=== PATIENT | female | born 1960 | race Caucasian/White ===

== ENCOUNTER 2020-05-04 10:37 | Outpatient (CLI) | payer MEDICARE, SELFPAY ==
[2020-05-04 10:59] LABS: Basophils Absolute Auto 0.08 K/mm3 (0.00-0.10); Basophils Percent Auto 0.8 % (0.0-1.0); Eosinophils Absolute Auto 0.21 K/mm3 (0.02-0.50); Eosinophils Percent Auto 2.2 % (1.0-6.0); Hematocrit 39.4 % (35.0-49.0); Immature Granulocyte Absolute 0.07 K/mm3 (0.00-0.00); Immature Granulocyte Percent A 0.7 % (0.0-0.0); Lymphocytes Absolute Auto 2.95 K/mm3 (1.10-4.50); Lymphocytes Percent Auto 30.6 % (18.0-42.0); Mean Corpuscular HGB Conc 30.5 g/dL (32.0-36.0); Mean Corpuscular Hemoglobin 27.6 pg (27.0-31.0); Mean Corpuscular Volume 90.8 fL (78.0-102.0); Monocytes Absolute Auto 0.64 K/mm3 (0.10-0.90); Monocytes Percent Auto 6.6 % (2.0-11.0); Neutrophils Absolute Auto 5.7 K/mm3 (1.7-7.2); Neutrophils Percent Auto 59.1 % (50.0-70.0); Platelet Count Result 344 K/mm3 (150-420); Red Blood Count 4.34 M/mm3 (4.20-5.40); Red Cell Distribution Width 15.6 % (11.6-14.4); White Blood Count 9.6 K/mm3 (4.8-10.8)
[2020-05-04 11:09] LABS: Add Urine Microscopic? YES; Appearance Urine Cloudy (Clear); Bilirubin Urine Negative (Negative); Blood Urine Negative (Negative); Color Urine Yellow (Yellow); Glucose Urine UA Negative (Negative); Ketones Urine Negative (Negative); Leukocyte Esterase Ur Negative (Negative); Nitrate Urine Negative (Negative); Protein Urine 1+ (Negative); Specific Grav Ur >= 1.030 (1.010-1.020); Urobilinogen Urine 0.2 mg/dL (0.2-1.0)
[2020-05-04 11:10] LABS: Hemoglobin A1C 7.2 % (<5.7)
[2020-05-04 11:23] LABS: Bacteria Urine 2+ /hpf; RBC Urine 0-2 /hpf (0-2); Squamous Epithelial Cell Urine Moderate /hpf (Few); WBC Urine 0-3 /hpf (0-3)
[2020-05-04 11:25] LABS: Creatinine Urine 98.56 mg/dL (40-278)
[2020-05-04 11:26] LABS: MALB Creatinine Ratio 390.4 mg/g (0-30); Microalbumin Urine Random 384.8 mg/L
[2020-05-04 11:41] LABS: Alanine Aminotransferase 34 U/L (14-59); Albumin Level 3.6 g/dL (3.4-5.0); Alkaline Phosphatase 142 U/L (46-116); Anion Gap 15.7 mmol/L (7-16); Aspartate Amino Transferase 21 U/L (15-37); Bilirubin,Total 0.3 mg/dL (0.00-1.00); Blood Urea Nitrogen 17 mg/dL (7-18); Calcium 9.2 mg/dL (8.5-10.1); Carbon Dioxide 27 mmol/L (21-32); Chloride 102 mmol/L (98-108); Cholesterol 131 mg/dL (0-200); Estimated Glomerular Filt Rate > 60; Glucose 170 mg/dL (70-99); HDL Direct 37 mg/dL (40-60); LDL Cholesterol Calculated 70 mg/dL (<130); Osmolality Calculated 295 mOsm/kg (285-295); Potassium 4.7 mmol/L (3.5-5.1); Sodium 140 mmol/L (136-145); Thyroid Stimulating Hormone 1.85 uIU/mL (0.36-3.74); Total Protein 7.2 g/dL (6.4-8.2); Triglycerides 121 mg/dL (0-150)
== END 2020-05-04 10:38 | disposition home or self-care (01) ==
LOC: CHSLAB 10:43
PROVIDERS: PCP Internal Medicine; Visit Provider Internal Medicine
DX: E78.5 Hyperlipidemia, unspecified (principal); E11.9 Type 2 diabetes mellitus without complications; I10 Essential (primary) hypertension; Z00.00 Encounter for general adult medical examination without abnormal findings
CPT/HCPCS: 36415; 80053; 80061; 81001; 82043; 83036; 84443; 85025

== ENCOUNTER 2020-11-26 08:49 | Outpatient (RCR) | payer MEDICARE, SELFPAY ==
[2020-09-10 13:42] LABS: INR 3.8; Prothrombin Time 37.6 Seconds (9.64-11.0)
[2020-09-25 11:19] LABS: INR 3.6
[2020-10-12 13:30] LABS: Prothrombin Time 85.6 Seconds (9.50-12.10)
[2020-10-12 13:35] LABS: INR 8.7
[2020-10-19 14:07] LABS: INR 1.9
[2020-10-26 11:31] LABS: INR 2.1; Prothrombin Time 21.8 Seconds (9.50-12.10)
[2020-11-26 09:22] LABS: INR 3.2; Prothrombin Time 32.9 Seconds (9.50-12.10)
== END 2020-12-09 23:59 | disposition home or self-care (01) ==
LOC: CHSLAB 08:49
PROVIDERS: PCP Internal Medicine; Visit Provider Internal Medicine
DX: Z79.01 Long term (current) use of anticoagulants (principal)
CPT/HCPCS: 36415; 85610

== ENCOUNTER 2021-01-07 10:29 | Outpatient (CLI) | payer MEDICARE, SELFPAY ==
[2021-01-07 10:38] LABS: Basophils Absolute Auto 0.07 K/mm3 (0.00-0.10); Basophils Percent Auto 0.7 % (0.0-1.0); Eosinophils Percent Auto 1.9 % (1.0-6.0); Hematocrit 37.4 % (35.0-49.0); Hemoglobin 11.4 g/dL (12.0-15.0); Immature Granulocyte Absolute 0.07 K/mm3 (0.00-0.00); Immature Granulocyte Percent A 0.7 % (0.0-0.0); Lymphocytes Absolute Auto 2.69 K/mm3 (1.10-4.50); Lymphocytes Percent Auto 25.5 % (18.0-42.0); Mean Corpuscular HGB Conc 30.5 g/dL (32.0-36.0); Mean Corpuscular Hemoglobin 26.8 pg (27.0-31.0); Mean Corpuscular Volume 87.8 fL (78.0-102.0); Mean Platelet Volume 10.3 fl (9.2-11.8); Monocytes Absolute Auto 0.79 K/mm3 (0.10-0.90); Monocytes Percent Auto 7.5 % (2.0-11.0); Neutrophils Absolute Auto 6.7 K/mm3 (1.7-7.2); Neutrophils Percent Auto 63.7 % (50.0-70.0); Platelet Count Result 342 K/mm3 (150-420); Red Blood Count 4.26 M/mm3 (4.20-5.40); White Blood Count 10.6 K/mm3 (4.8-10.8)
[2021-01-07 10:46] LABS: Hemoglobin A1C 6.5 % (<5.7)
[2021-01-07 10:52] LABS: INR 1.8; Prothrombin Time 18.2 Seconds (9.50-12.10)
[2021-01-07 11:32] LABS: Alanine Aminotransferase 37 U/L (14-59); Albumin Level 3.5 g/dL (3.4-5.0); Alkaline Phosphatase 152 U/L (46-116); Anion Gap 10 mmol/L (8-16); Aspartate Amino Transferase 21 U/L (15-37); Bilirubin,Total 0.4 mg/dL (0.00-1.00); Blood Urea Nitrogen 17 mg/dL (7-18); Calcium 8.7 mg/dL (8.5-10.1); Carbon Dioxide 28 mmol/L (21-32); Chloride 103 mmol/L (98-108); Cholesterol 119 mg/dL (0-200); Estimated Glomerular Filt Rate > 60; Glucose 168 mg/dL (70-99); HDL Direct 34 mg/dL (40-60); LDL Cholesterol Calculated 67 mg/dL (<130); Osmolality Calculated 297 mOsm/kg (285-295); Potassium 4.4 mmol/L (3.5-5.1); Sodium 141 mmol/L (136-145); Thyroid Stimulating Hormone 1.77 uIU/mL (0.36-3.74); Total Protein 6.9 g/dL (6.4-8.2); Triglycerides 88 mg/dL (0-150)
== END 2021-01-07 10:30 | disposition home or self-care (01) ==
LOC: CHSLAB 10:30
PROVIDERS: PCP Internal Medicine; Visit Provider Internal Medicine
DX: E11.9 Type 2 diabetes mellitus without complications (principal); I10 Essential (primary) hypertension; E66.01 Morbid (severe) obesity due to excess calories; I49.9 Cardiac arrhythmia, unspecified; Z79.01 Long term (current) use of anticoagulants
CPT/HCPCS: 36415; 80053; 80061; 83036; 84443; 85025; 85610

== ENCOUNTER 2021-03-11 11:57 | Outpatient (RCR) | payer MEDICARE, SELFPAY ==
[2020-12-21 12:20] LABS: INR 1.6; Prothrombin Time 16.3 Seconds (9.50-12.10)
[2021-02-05 11:26] LABS: INR 1.8; Prothrombin Time 18.6 Seconds (9.50-12.10)
[2021-03-11 12:28] LABS: INR 1.5; Prothrombin Time 15.6 Seconds (9.50-12.10)
== END 2021-03-21 23:59 | disposition home or self-care (01) ==
LOC: CHSLAB 11:57
PROVIDERS: PCP Internal Medicine; Visit Provider Internal Medicine
DX: Z79.01 Long term (current) use of anticoagulants (principal)
CPT/HCPCS: 36415; 85610

== ENCOUNTER 2021-05-27 12:14 | Outpatient (RCR) | payer MEDICARE, SELFPAY ==
[2021-03-26 12:12] LABS: INR 2.5; Prothrombin Time 25.9 Seconds (9.50-12.10)
[2021-05-10 10:28] LABS: INR 1.8; Prothrombin Time 18.2 Seconds (9.50-12.10)
[2021-05-27 13:04] LABS: INR 1.9; Prothrombin Time 19.2 Seconds (9.50-12.10)
== END 2021-06-24 23:59 | disposition home or self-care (01) ==
LOC: CHSLAB 12:14
PROVIDERS: PCP Internal Medicine; Visit Provider Internal Medicine
DX: Z79.01 Long term (current) use of anticoagulants (principal)
CPT/HCPCS: 36415; 85610

== ENCOUNTER 2021-08-02 08:36 | Outpatient (CLI) | payer MEDICARE, SELFPAY ==
[2021-08-02 08:48] LABS: Basophils Absolute Auto 0.07 K/mm3 (0.00-0.10); Basophils Percent Auto 0.7 % (0.0-1.0); Eosinophils Absolute Auto 0.18 K/mm3 (0.02-0.50); Eosinophils Percent Auto 1.8 % (1.0-6.0); Hematocrit 35.7 % (35.0-49.0); Hemoglobin 10.8 g/dL (12.0-15.0); Immature Granulocyte Absolute 0.05 K/mm3 (0.00-0.00); Immature Granulocyte Percent A 0.5 % (0.0-0.0); Lymphocytes Absolute Auto 2.49 K/mm3 (1.10-4.50); Lymphocytes Percent Auto 25.6 % (18.0-42.0); Mean Corpuscular HGB Conc 30.3 g/dL (32.0-36.0); Mean Corpuscular Hemoglobin 26.3 pg (27.0-31.0); Mean Corpuscular Volume 86.9 fL (78.0-102.0); Mean Platelet Volume 9.7 fl (9.2-11.8); Monocytes Absolute Auto 0.68 K/mm3 (0.10-0.90); Neutrophils Absolute Auto 6.3 K/mm3 (1.7-7.2); Neutrophils Percent Auto 64.4 % (50.0-70.0); Platelet Count Result 342 K/mm3 (150-420); Red Blood Count 4.11 M/mm3 (4.20-5.40); White Blood Count 9.7 K/mm3 (4.8-10.8)
[2021-08-02 09:00] LABS: Hemoglobin A1C 8.1 % (<5.7)
[2021-08-02 09:03] LABS: INR 3.3; Prothrombin Time 33.4 Seconds (9.50-12.10)
[2021-08-02 10:00] LABS: Alanine Aminotransferase 37 U/L (14-59); Albumin Level 3.4 g/dL (3.4-5.0); Alkaline Phosphatase 145 U/L (46-116); Anion Gap 8 mmol/L (8-16); Aspartate Amino Transferase 17 U/L (15-37); Bilirubin,Total 0.3 mg/dL (0.00-1.00); Blood Urea Nitrogen 14 mg/dL (7-18); Calcium 8.6 mg/dL (8.5-10.1); Carbon Dioxide 29 mmol/L (21-32); Chloride 105 mmol/L (98-108); Estimated Glomerular Filt Rate > 60; Glucose 176 mg/dL (70-99); Osmolality Calculated 298 mOsm/kg (285-295); Potassium 4.7 mmol/L (3.5-5.1); Sodium 142 mmol/L (136-145); Total Protein 6.6 g/dL (6.4-8.2)
== END 2021-08-02 08:37 | disposition home or self-care (01) ==
LOC: CHSLAB 08:39
PROVIDERS: PCP Internal Medicine; Visit Provider Internal Medicine
DX: Z79.01 Long term (current) use of anticoagulants (principal); I10 Essential (primary) hypertension; E11.9 Type 2 diabetes mellitus without complications
CPT/HCPCS: 36415; 80053; 83036; 85025; 85610

== ENCOUNTER 2021-08-28 03:20 | Day surgery (SDC) | payer MEDICARE, SELFPAY ==
[2021-08-20 10:17] VITALS: BMI 57.3
--- NOTE | 2021-08-27 10:29 | P.PNAN_ITS ---
Anes - Initial Pre Proc Eval Procedure: Operation Date: 08/28/21 12:30 Proposed Procedures p Colonoscopy - Arnoldo Nelson MD Date/Time: 08/27/21 10:29 Surgeon: Arnoldo Nelson MD Pre Op Diagnosis: anemia Patient Data Age: 61 Gender: F Height: 1.7 m Weight: 166 kg Allergies Allergy/AdvReac Type Severity Reaction Status Date / Time No Known Allergies Allergy Verified 08/28/21 11:53 Home Medications Medication Instructions Recorded Confirmed Type carvedilol 12.5 mg PO BID 08/20/21 08/20/21 History cetirizine 10 mg PO DAILY 08/20/21 08/20/21 History duloxetine 20 mg PO BID 08/20/21 08/20/21 History famotidine 20 mg PO DAILY 08/20/21 08/20/21 History losartan-hydrochlorothiazide 1 tablet PO DAILY 08/20/21 08/20/21 History metformin 1,500 mg PO DAILY 08/20/21 08/20/21 History semaglutide [Ozempic] 0.25 mg SUBCUT WEEKLY 08/20/21 08/20/21 History sertraline 150 mg PO DAILY 08/20/21 08/20/21 History spironolactone 25 mg PO DAILY 08/20/21 08/20/21 History warfarin 3.5 mg PO DAILY 08/20/21 08/20/21 History Patient hx anesthesia problems: none Family hx anesthesia problems: none Results Review: All pre-operative results and documents have been reviewed as part of the pre-operative evaluation. [facility] Past Medical History Medical History (Updated 08/27/21 @ 10:30 by Maurice Xavier DO) Asthma Atrial fibrillation Diabetes type 2, controlled GERD (gastroesophageal reflux disease) History of ulcer disease Hypertension ERIKA (obstructive sleep apnea) Surgical History Surgical History (Updated 08/27/21 @ 10:30 by Maurice Xavier DO) History of gastric bypass Social History Social History Smoking status: Never smoker Living arrangements: alone Spiritual care concerns: No Anes - Eval Final PreProcedure Day of Procedure 08/27/21 10:29 Patient weight: super morbidly obese Heart: regular rate and rhythm Lungs: clear to auscultation and normal air movement Airway: Mallampati scale class III Neurological: alert and oriented Last oral intake: >/= 8 hours ASA classification: III Emergent: no Anesthetic plan: proceed Anesthesia type and monitoring: general GIVS and standard monitoring Results Review: All pre-operative results and documents have been reviewed as part of the pre-operative evaluation. Informed Consent: The patient's anesthetic plan and its attendant risks and benefits were discussed with the patient/family/POA. Questions were solicited and answers provided to the satisfaction of the patient/family/POA.
[2021-08-28 12:00] VITALS: BP 160/95; PULSE 99; RESP 26; TEMP 36.2; O2SAT 98
[2021-08-28] MEDS: LACTATED RINGERS 1,000 ML 150 ML IV CONT (12:02)
[2021-08-28 12:09] LABS: Glucose Point of Care 157 mg/dl (65-105)
--- NOTE | 2021-08-28 12:21 | PM.HPGS ---
History of Present Illness History of Present Illness Consent: Risks, benefits, and alternatives have been discussed and questions answered. Patient agrees to proceed with procedure. Chief complaint: anemia Narrative: Adelita Hammonds is a 61 year old female with max, using coumadin but denies overt gib, last colonoscopy about 20 years ago. Review of Systems Constitutional: Constitutional: Denies headache(s) and Denies weakness Eyes: Eyes: Denies blurry vision ENT: Reports Normal hearing present, Denies headache(s) and Denies neck pain Cardiovascular: Cardiovascular: Denies chest pain and Denies dyspnea Respiratory: Respiratory: Denies dyspnea Gastrointestinal: Gastrointestinal: Reports no additional gastrointestinal complaints Genitourinary: Genitourinary: Denies dysuria Musculoskeletal: Musculoskeletal: Denies neck pain Integumentary/Breasts: Skin/Breast: Denies dry skin Neurologic: Reports Normal hearing present, Denies headache(s) and Denies weakness Psychiatric: Psychiatric: Denies anxiety Endocrine: Endocrine: Denies change in body appearance Hematologic/Lymphatic: Hematologic/Lymphatic: Denies easy bleeding Allergic/Immunologic: Allergic/Immunologic: Denies urticaria PMFSH Past Medical History Medical History (Updated 08/28/21 @ 12:22 by Arnoldo Nelson MD) Asthma Atrial fibrillation Diabetes type 2, controlled GERD (gastroesophageal reflux disease) History of ulcer disease Hypertension Iron deficiency anemia ERIKA (obstructive sleep apnea) Surgical History Surgical History (Updated 08/27/21 @ 10:30 by Maurice Xavier DO) History of gastric bypass Social History Social History Smoking status: Never smoker Living arrangements: alone Spiritual care concerns: No Meds Home Medications and Allergies Home Medications Medication Instructions Recorded Confirmed Type carvedilol 12.5 mg PO BID 08/20/21 08/20/21 History cetirizine 10 mg PO DAILY 08/20/21 08/20/21 History duloxetine 20 mg PO BID 08/20/21 08/20/21 History famotidine 20 mg PO DAILY 08/20/21 08/20/21 History losartan-hydrochlorothiazide 1 tablet PO DAILY 08/20/21 08/20/21 History metformin 1,500 mg PO DAILY 08/20/21 08/20/21 History semaglutide [Ozempic] 0.25 mg SUBCUT WEEKLY 08/20/21 08/20/21 History sertraline 150 mg PO DAILY 08/20/21 08/20/21 History spironolactone 25 mg PO DAILY 08/20/21 08/20/21 History warfarin 3.5 mg PO DAILY 08/20/21 08/20/21 History Allergies Allergy/AdvReac Type Severity Reaction Status Date / Time No Known Allergies Allergy Verified 08/28/21 11:53 Vital Signs Vital Signs - 24 hr 08/28/21 12:00 Temperature 97.2 F L Pulse Rate 99 Respiratory Rate 26 H Blood Pressure 160/95 H Pulse Oximetry 98 Exam Const: General: comfortable and no acute distress Nutritional Appearance: obese HENMT: General nose exam: Normal nares present Eyes: General: appearance normal, both eyes and all related structures Neck: Neck: no JVD Resp: Auscultation: clear to auscultation bilaterally Cardio: Rate: regular rate Rhythm: regular rhythm GI: Inspection: non-distended GI Palp: Yes Soft to palpation Skin: General skin exam: normal color Neuro: General: gait normal Speech: normal speech Extrem: General: normal to inspection Psych: Mental Status: mental status grossly normal Assessment and Plan Assessment and plan (1) Iron deficiency anemia: Code(s): D50.9 - Iron deficiency anemia, unspecified Status: Acute Assessment and Plan: colonoscopy to assess if gi blood loss (2) Atrial fibrillation: Code(s): I48.91 - Unspecified atrial fibrillation Status: Inactive Assessment and Plan: coumadin on hold on preparation for colonoscopy
[2021-08-28 13:21] VITALS: BP 138/75; PULSE 62; RESP 14; O2SAT 98
[2021-08-28 13:31] VITALS: BP 118/74; PULSE 66; RESP 19; O2SAT 99
[2021-08-28 13:41] VITALS: BP 143/84; PULSE 64; RESP 22; O2SAT 100
== END 2021-08-28 14:01 | disposition home or self-care (01) ==
PROVIDERS: PCP Internal Medicine; Visit Provider Internal Medicine Gastroenterology
PROC: 0DJD8ZZ Inspection of Lower Intestinal Tract, Via Natural or Artificial Opening Endoscopic (ICD-10-PCS; CPT 45378; principal; 2021-08-28 12:30)
DX: Z12.11 Encounter for screening for malignant neoplasm of colon (principal); D50.9 Iron deficiency anemia, unspecified; K64.8 Other hemorrhoids; I48.91 Unspecified atrial fibrillation; J45.909 Unspecified asthma, uncomplicated; I10 Essential (primary) hypertension; K21.9 Gastro-esophageal reflux disease without esophagitis; G47.33 Obstructive sleep apnea (adult) (pediatric); Z87.11 Personal history of peptic ulcer disease; Z79.01 Long term (current) use of anticoagulants; Z79.899 Other long term (current) drug therapy; Z98.84 Bariatric surgery status; E66.01 Morbid (severe) obesity due to excess calories; Z68.43 Body mass index [BMI] 50.0-59.9, adult
CPT/HCPCS: G0121; 82948; J2704; J7120

== ENCOUNTER 2021-10-08 10:14 | Outpatient (RCR) | payer MEDICARE, SELFPAY ==
[2021-09-26 09:22] LABS: INR 1.9; Prothrombin Time 19.3 Seconds (9.50-12.10)
[2021-10-08 10:40] LABS: INR 2.1; Prothrombin Time 21.9 Seconds (9.50-12.10)
== END 2021-10-08 23:59 | disposition home or self-care (01) ==
LOC: CHSLAB 10:14
PROVIDERS: PCP Internal Medicine; Visit Provider Internal Medicine
DX: Z79.01 Long term (current) use of anticoagulants (principal)
CPT/HCPCS: 36415; 85610

== ENCOUNTER 2022-01-10 10:35 | Outpatient (CLI) | payer MEDICARE, SELFPAY ==
[2022-01-10 10:51] LABS: Basophils Absolute Auto 0.08 K/mm3 (0.00-0.10); Basophils Percent Auto 0.8 % (0.0-1.0); Eosinophils Absolute Auto 0.16 K/mm3 (0.02-0.50); Eosinophils Percent Auto 1.7 % (1.0-6.0); Hematocrit 36.6 % (35.0-49.0); Immature Granulocyte Absolute 0.04 K/mm3 (0.00-0.00); Immature Granulocyte Percent A 0.4 % (0.0-0.0); Lymphocytes Absolute Auto 2.43 K/mm3 (1.10-4.50); Lymphocytes Percent Auto 25.7 % (18.0-42.0); Mean Corpuscular HGB Conc 30.1 g/dL (32.0-36.0); Mean Corpuscular Hemoglobin 25.8 pg (27.0-31.0); Mean Corpuscular Volume 85.7 fL (78.0-102.0); Mean Platelet Volume 10.4 fl (9.2-11.8); Monocytes Absolute Auto 0.69 K/mm3 (0.10-0.90); Monocytes Percent Auto 7.3 % (2.0-11.0); Neutrophils Absolute Auto 6.1 K/mm3 (1.7-7.2); Neutrophils Percent Auto 64.1 % (50.0-70.0); Platelet Count Result 379 K/mm3 (150-420); Red Blood Count 4.27 M/mm3 (4.20-5.40); Red Cell Distribution Width 17.3 % (11.6-14.4); White Blood Count 9.5 K/mm3 (4.8-10.8)
[2022-01-10 11:02] LABS: Hemoglobin A1C 7.2 % (<5.7)
[2022-01-10 11:04] LABS: INR 1.6; Prothrombin Time 16.8 Seconds (9.50-12.10)
[2022-01-10 11:58] LABS: Alanine Aminotransferase 31 U/L (14-59); Albumin Level 3.4 g/dL (3.4-5.0); Alkaline Phosphatase 157 U/L (46-116); Anion Gap 11 mmol/L (8-16); Aspartate Amino Transferase 15 U/L (15-37); Bilirubin,Total 0.4 mg/dL (0.00-1.00); Blood Urea Nitrogen 12 mg/dL (7-18); Calcium 8.9 mg/dL (8.5-10.1); Carbon Dioxide 27 mmol/L (21-32); Chloride 104 mmol/L (98-108); Cholesterol 116 mg/dL (0-200); Estimated Glomerular Filt Rate > 60; Glucose 175 mg/dL (70-99); HDL Direct 44 mg/dL (40-60); LDL Cholesterol Calculated 55 mg/dL (<130); Osmolality Calculated 297 mOsm/kg (285-295); Potassium 4.4 mmol/L (3.5-5.1); Sodium 142 mmol/L (136-145); Thyroid Stimulating Hormone 1.34 uIU/mL (0.36-3.74); Total Protein 6.9 g/dL (6.4-8.2); Triglycerides 84 mg/dL (0-150)
[2022-01-10 12:23] LABS: Creatinine Urine 156.98 mg/dL (40-278); MALB Creatinine Ratio 254.8 mg/g (0-30); Microalbumin Urine Random > 400.0 mg/L
== END 2022-01-10 10:36 | disposition home or self-care (01) ==
LOC: CHSLAB 10:37
PROVIDERS: PCP Internal Medicine; Visit Provider Internal Medicine
DX: Z79.01 Long term (current) use of anticoagulants (principal); I10 Essential (primary) hypertension; E11.9 Type 2 diabetes mellitus without complications; E78.5 Hyperlipidemia, unspecified
CPT/HCPCS: 36415; 80053; 80061; 82043; 83036; 84443; 85025; 85610

== ENCOUNTER 2022-02-04 11:22 | Outpatient (CLI) | payer MEDICARE, SELFPAY ==
--- NOTE | ~2022-02-04 | MM_ITS ---
EXAMINATION: MM screening [facility] BI w shari HISTORY: Screening mammogram TECHNIQUE: Craniocaudal and mediolateral oblique 3-D tomosynthesis images were obtained and synthetic 2-D images were generated. CAD analysis was submitted and interpreted. COMPARISON: 12/29/2017, 09/11/2016 BREAST PARENCHYMAL COMPOSITION: There are scattered areas of fibroglandular density. FINDINGS: There is no suspicious mass, calcification, or architectural distortion to suggest malignan cy in either breast. There has been no suspicious interval change. IMPRESSION: 1. No mammographic evidence of malignancy. 2. Recommend routine screening mammography in one year. BI-RADS Category 1: Negative Reviewed, dictated and finalized at location A.
[2022-02-04 11:54] LABS: INR 4.3; Prothrombin Time 43.3 Seconds (9.50-12.10)
== END 2022-02-04 11:23 | disposition home or self-care (01) ==
LOC: CHSIMG 11:24
PROVIDERS: PCP Internal Medicine; Visit Provider Internal Medicine
DX: Z79.01 Long term (current) use of anticoagulants (principal); Z12.31 Encounter for screening mammogram for malignant neoplasm of breast
CPT/HCPCS: 36415; 77063; 77067; 85610

== ENCOUNTER 2022-02-18 11:05 | Outpatient (RCR) | payer MEDICARE, SELFPAY ==
[2021-11-22 11:44] LABS: INR 1.7; Prothrombin Time 17.7 Seconds (9.50-12.10)
[2021-12-09 10:55] LABS: INR 2.6; Prothrombin Time 26.7 Seconds (9.50-12.10)
[2022-02-18 11:25] LABS: INR 2.2; Prothrombin Time 22.4 Seconds (9.50-12.10)
== END 2022-02-20 23:59 | disposition home or self-care (01) ==
LOC: CHSLAB 11:05
PROVIDERS: PCP Internal Medicine; Visit Provider Internal Medicine
DX: Z79.01 Long term (current) use of anticoagulants (principal)
CPT/HCPCS: 36415; 85610

== ENCOUNTER 2022-04-08 13:54 | Outpatient (CLI) | payer MEDICARE, SELFPAY ==
[2022-04-08 14:46] LABS: SARS-CoV-2 RNA PCR Negative (Negative)
== END 2022-04-08 13:55 | disposition home or self-care (01) ==
PROVIDERS: PCP Internal Medicine; Visit Provider Nurse Practitioner Family
DX: J06.9 Acute upper respiratory infection, unspecified (principal); Z20.822 Contact with and (suspected) exposure to COVID-19
CPT/HCPCS: C9803; U0003; U0005

== ENCOUNTER 2022-04-26 09:37 | Outpatient (CLI) | payer MEDICARE, SELFPAY ==
[2022-04-26 09:50] LABS: Basophils Absolute Auto 0.05 K/mm3 (0.00-0.10); Basophils Percent Auto 0.5 % (0.0-1.0); Eosinophils Absolute Auto 0.17 K/mm3 (0.02-0.50); Eosinophils Percent Auto 1.7 % (1.0-6.0); Hematocrit 39.4 % (35.0-49.0); Hemoglobin 12.2 g/dL (12.0-15.0); Immature Granulocyte Absolute 0.04 K/mm3 (0.00-0.00); Immature Granulocyte Percent A 0.4 % (0.0-0.0); Lymphocytes Absolute Auto 2.67 K/mm3 (1.10-4.50); Lymphocytes Percent Auto 27.1 % (18.0-42.0); Mean Corpuscular Hemoglobin 26.6 pg (27.0-31.0); Mean Corpuscular Volume 85.8 fL (78.0-102.0); Mean Platelet Volume 10.1 fl (9.2-11.8); Monocytes Absolute Auto 0.71 K/mm3 (0.10-0.90); Monocytes Percent Auto 7.2 % (2.0-11.0); Neutrophils Absolute Auto 6.2 K/mm3 (1.7-7.2); Neutrophils Percent Auto 63.1 % (50.0-70.0); Platelet Count Result 364 K/mm3 (150-420); Red Blood Count 4.59 M/mm3 (4.20-5.40); Red Cell Distribution Width 16.1 % (11.6-14.4); White Blood Count 9.8 K/mm3 (4.8-10.8)
[2022-04-26 10:06] LABS: INR 1.9; Prothrombin Time 19.5 Seconds (9.50-12.10)
[2022-04-26 10:07] LABS: Hemoglobin A1C 6.3 % (<5.7)
[2022-04-26 10:09] LABS: Alanine Aminotransferase 27 U/L (14-59); Albumin Level 3.5 g/dL (3.4-5.0); Alkaline Phosphatase 132 U/L (46-116); Anion Gap 9 mmol/L (8-16); Aspartate Amino Transferase 17 U/L (15-37); Bilirubin,Total 0.3 mg/dL (0.00-1.00); Blood Urea Nitrogen 22 mg/dL (7-18); Calcium 9.4 mg/dL (8.5-10.1); Carbon Dioxide 26 mmol/L (21-32); Chloride 106 mmol/L (98-108); Estimated Glomerular Filt Rate > 60; Glucose 147 mg/dL (70-99); Osmolality Calculated 298 mOsm/kg (285-295); Potassium 4.2 mmol/L (3.5-5.1); Sodium 141 mmol/L (136-145); Total Protein 7.7 g/dL (6.4-8.2)
== END 2022-04-26 09:38 | disposition home or self-care (01) ==
LOC: CHSLAB 09:38
PROVIDERS: PCP Internal Medicine; Visit Provider Internal Medicine
DX: E11.9 Type 2 diabetes mellitus without complications (principal); I10 Essential (primary) hypertension; I48.19 Other persistent atrial fibrillation
CPT/HCPCS: 36415; 80053; 83036; 85025; 85610

== ENCOUNTER 2022-05-30 09:59 | Outpatient (RCR) | payer MEDICARE, SELFPAY ==
[2022-04-03 09:22] LABS: Prothrombin Time 55.7 Seconds (9.50-12.10)
[2022-04-03 09:28] LABS: INR 5.7
[2022-04-14 12:21] LABS: INR 1.2; Prothrombin Time 12.7 Seconds (9.50-12.10)
[2022-05-30 10:26] LABS: INR 1.8; Prothrombin Time 18.6 Seconds (9.50-12.10)
== END 2022-07-02 23:59 | disposition home or self-care (01) ==
LOC: CHSLAB 09:59
PROVIDERS: PCP Internal Medicine; Visit Provider Internal Medicine
DX: Z79.01 Long term (current) use of anticoagulants (principal)
CPT/HCPCS: 36415; 85610

== ENCOUNTER 2022-09-30 11:31 | Outpatient (RCR) | payer MEDICARE, SELFPAY ==
[2022-07-04 11:09] LABS: INR 1.5; Prothrombin Time 15.9 Seconds (9.50-12.10)
[2022-07-22 10:07] LABS: INR 2.5; Prothrombin Time 25.3 Seconds (9.50-12.10)
[2022-08-21 12:13] LABS: INR 2.7; Prothrombin Time 27.5 Seconds (9.50-12.10)
[2022-09-30 12:08] LABS: INR 1.8; Prothrombin Time 18.9 Seconds (9.50-12.10)
== END 2022-10-02 23:59 | disposition home or self-care (01) ==
LOC: CHSLAB 11:31
PROVIDERS: PCP Internal Medicine; Visit Provider Internal Medicine
DX: Z79.01 Long term (current) use of anticoagulants (principal)
CPT/HCPCS: 36415; 85610

== ENCOUNTER 2022-11-25 09:13 | Outpatient (CLI) | payer MEDICARE, SELFPAY ==
[2022-11-25 09:55] LABS: Basophils Absolute Auto 0.08 K/mm3 (0.00-0.10); Eosinophils Absolute Auto 0.16 K/mm3 (0.02-0.50); Hematocrit 40.7 % (35.0-49.0); Hemoglobin 12.6 g/dL (12.0-15.0); Immature Granulocyte Absolute 0.02 K/mm3 (0.00-0.00); Immature Granulocyte Percent A 0.3 % (0.0-0.0); Lymphocytes Absolute Auto 2.21 K/mm3 (1.10-4.50); Lymphocytes Percent Auto 27.6 % (18.0-42.0); Mean Corpuscular Hemoglobin 27.6 pg (27.0-31.0); Mean Corpuscular Volume 89.1 fL (78.0-102.0); Mean Platelet Volume 10.1 fl (9.2-11.8); Monocytes Absolute Auto 0.54 K/mm3 (0.10-0.90); Monocytes Percent Auto 6.8 % (2.0-11.0); Neutrophils Percent Auto 62.3 % (50.0-70.0); Platelet Count Result 331 K/mm3 (150-420); Red Blood Count 4.57 M/mm3 (4.20-5.40); Red Cell Distribution Width 16.5 % (11.6-14.4)
[2022-11-25 10:04] LABS: Hemoglobin A1C 6.2 % (<5.7)
[2022-11-25 10:35] LABS: Add Urine Microscopic? NO; Appearance Urine Clear (Clear); Bilirubin Urine Negative (Negative); Blood Urine Negative (Negative); Color Urine Yellow (Yellow); Glucose Urine UA Negative (Negative); Ketones Urine Negative (Negative); Leukocyte Esterase Ur Negative LEU/UL (Negative); Nitrate Urine Negative (Negative); Protein Urine Negative (Negative); Specific Grav Ur >= 1.030 (1.010-1.020); Urobilinogen Urine 0.2 mg/dL (0.2-1.0); pH Urine 5.5 (5.0-8.0)
[2022-11-25 10:38] LABS: Alanine Aminotransferase 29 U/L (14-59); Albumin Level 3.7 g/dL (3.4-5.0); Alkaline Phosphatase 152 U/L (46-116); Anion Gap 9 mmol/L (8-16); Aspartate Amino Transferase 22 U/L (15-37); Bilirubin,Total 0.3 mg/dL (0.00-1.00); Blood Urea Nitrogen 28 mg/dL (7-18); Calcium 9.2 mg/dL (8.5-10.1); Carbon Dioxide 27 mmol/L (21-32); Chloride 103 mmol/L (98-108); Cholesterol 175 mg/dL (0-200); Estimated Glomerular Filt Rate > 60; Glucose 132 mg/dL (70-99); HDL Direct 51 mg/dL (40-60); LDL Cholesterol Calculated 105 mg/dL (<130); Osmolality Calculated 295 mOsm/kg (285-295); Potassium 4.1 mmol/L (3.5-5.1); Sodium 139 mmol/L (136-145); Total Protein 7.4 g/dL (6.4-8.2); Triglycerides 95 mg/dL (0-150)
== END 2022-11-25 09:14 | disposition home or self-care (01) ==
PROVIDERS: PCP Internal Medicine; Visit Provider Internal Medicine
DX: E11.65 Type 2 diabetes mellitus with hyperglycemia (principal); E78.2 Mixed hyperlipidemia; N39.0 Urinary tract infection, site not specified
CPT/HCPCS: 36415; 80053; 80061; 81003; 83036; 85025

== ENCOUNTER 2023-02-04 10:07 | Outpatient (RCR) | payer MEDICARE, SELFPAY ==
[2022-11-11 09:52] LABS: INR 2.8; Prothrombin Time 28.7 Seconds (9.50-12.10)
[2022-12-16 09:31] LABS: INR 1.7; Prothrombin Time 18.1 Seconds (9.50-12.10)
[2022-12-30 09:59] LABS: INR 1.2; Prothrombin Time 13.2 Seconds (9.50-12.10)
[2023-01-13 09:49] LABS: INR 1.7; Prothrombin Time 18.2 Seconds (9.50-12.10)
[2023-01-20 09:44] LABS: INR 1.7; Prothrombin Time 18.2 Seconds (9.50-12.10)
[2023-01-27 09:48] LABS: INR 1.8; Prothrombin Time 18.9 Seconds (9.50-12.10)
[2023-02-04 10:26] LABS: INR 2.3; Prothrombin Time 23.8 Seconds (9.50-12.10)
== END 2023-02-09 23:59 | disposition home or self-care (01) ==
LOC: CHSLAB 10:07
PROVIDERS: PCP Internal Medicine; Visit Provider Internal Medicine
DX: Z51.81 Encounter for therapeutic drug level monitoring (principal); Z79.01 Long term (current) use of anticoagulants
CPT/HCPCS: 36415; 85610

== ENCOUNTER 2023-02-05 13:50 | Outpatient (CLI) | payer MEDICARE, SELFPAY ==
--- NOTE | ~2023-02-05 | MM_ITS ---
EXAMINATION: MM screening [facility] BI w shari HISTORY: Screening TECHNIQUE: Craniocaudal and mediolateral oblique 3-D tomosynthesis images were obtained and synthetic 2-D images were generated. CAD analysis was submitted and interpreted. COMPARISON: Comparison to multiple prior studies sequentially, with oldest reviewed study dated 03/2013. BREAST PARENCHYMAL COMPOSITION: There are scattered areas of fibroglandular density. FINDINGS: There is no evidence of suspicious mass, calcification, or architectural distortion to sugg est malignancy in either breast. There has been no suspicious interval change. IMPRESSION: 1. No mammographic evidence of malignancy. 2. Recommend routine screening mammography in one year. BI-RADS Category 1: Negative Reviewed, dictated and finalized at location A.
== END 2023-02-05 13:51 | disposition home or self-care (01) ==
LOC: CHSIMG 13:50
PROVIDERS: PCP Internal Medicine; Visit Provider Internal Medicine
DX: Z12.31 Encounter for screening mammogram for malignant neoplasm of breast (principal)
CPT/HCPCS: 77063; 77067

== ENCOUNTER 2023-03-10 09:09 | Outpatient (CLI) | payer MEDICARE, SELFPAY ==
[2023-03-10 09:34] LABS: INR 2.5; Prothrombin Time 25.9 Seconds (9.50-12.10)
[2023-03-10 09:56] LABS: Hemoglobin A1C 6.4 % (<5.7)
[2023-03-10 10:05] LABS: Alanine Aminotransferase 28 U/L (14-59); Albumin Level 3.4 g/dL (3.4-5.0); Alkaline Phosphatase 166 U/L (46-116); Anion Gap 9 mmol/L (8-16); Aspartate Amino Transferase 14 U/L (15-37); Bilirubin,Total 0.4 mg/dL (0.00-1.00); Blood Urea Nitrogen 12 mg/dL (7-18); Carbon Dioxide 28 mmol/L (21-32); Chloride 107 mmol/L (98-108); Cholesterol 116 mg/dL (0-200); Estimated Glomerular Filt Rate > 60; Glucose 127 mg/dL (70-99); HDL Direct 53 mg/dL (40-60); LDL Cholesterol Calculated 48 mg/dL (<130); Osmolality Calculated 299 mOsm/kg (285-295); Potassium 4.3 mmol/L (3.5-5.1); Sodium 144 mmol/L (136-145); Total Protein 6.7 g/dL (6.4-8.2); Triglycerides 75 mg/dL (0-150)
== END 2023-03-10 09:10 | disposition home or self-care (01) ==
LOC: CHSLAB 09:12
PROVIDERS: PCP Internal Medicine; Visit Provider Internal Medicine
DX: Z79.01 Long term (current) use of anticoagulants (principal); E11.9 Type 2 diabetes mellitus without complications; I10 Essential (primary) hypertension
CPT/HCPCS: 36415; 80053; 80061; 83036; 85610

== ENCOUNTER 2023-06-30 09:24 | Outpatient (RCR) | payer MEDICARE, SELFPAY ==
[2023-04-07 10:00] LABS: INR 2.6; Prothrombin Time 26.3 Seconds (9.50-12.10)
[2023-05-15 12:22] LABS: Prothrombin Time 52.3 Seconds (9.50-12.10)
[2023-05-15 12:28] LABS: INR 5.4
[2023-06-02 09:28] LABS: INR 3.9; Prothrombin Time 38.6 Seconds (9.50-12.10)
[2023-06-16 09:46] LABS: INR 4.2; Prothrombin Time 41.1 Seconds (9.50-12.10)
[2023-06-30 09:51] LABS: INR 1.7; Prothrombin Time 17.6 Seconds (9.50-12.10)
== END 2023-07-06 23:59 | disposition home or self-care (01) ==
LOC: CHSLAB 09:24
PROVIDERS: PCP Internal Medicine; Visit Provider Internal Medicine
DX: Z51.81 Encounter for therapeutic drug level monitoring (principal); Z79.01 Long term (current) use of anticoagulants
CPT/HCPCS: 36415; 85610

== ENCOUNTER 2023-08-06 08:39 | Outpatient (CLI) | payer MEDICARE, SELFPAY ==
[2023-08-06 08:54] LABS: Basophils Absolute Auto 0.05 K/mm3 (0.00-0.10); Basophils Percent Auto 0.6 % (0.0-1.0); Eosinophils Absolute Auto 0.21 K/mm3 (0.02-0.50); Eosinophils Percent Auto 2.4 % (1.0-6.0); Hematocrit 35.3 % (35.0-49.0); Hemoglobin 10.9 g/dL (12.0-15.0); Immature Granulocyte Absolute 0.03 K/mm3 (0.00-0.00); Immature Granulocyte Percent A 0.3 % (0.0-0.0); Lymphocytes Absolute Auto 2.56 K/mm3 (1.10-4.50); Mean Corpuscular HGB Conc 30.9 g/dL (32.0-36.0); Mean Corpuscular Hemoglobin 27.9 pg (27.0-31.0); Mean Corpuscular Volume 90.5 fL (78.0-102.0); Monocytes Absolute Auto 0.68 K/mm3 (0.10-0.90); Monocytes Percent Auto 7.7 % (2.0-11.0); Neutrophils Absolute Auto 5.3 K/mm3 (1.7-7.2); Platelet Count Result 342 K/mm3 (150-420); Red Cell Distribution Width 15.6 % (11.6-14.4); White Blood Count 8.8 K/mm3 (4.8-10.8)
[2023-08-06 09:03] LABS: Hemoglobin A1C 6.2 % (<5.7)
[2023-08-06 09:09] LABS: INR 1.9; Prothrombin Time 19.4 Seconds (9.50-12.10)
[2023-08-06 09:40] LABS: Alanine Aminotransferase 26 U/L (14-59); Albumin Level 3.4 g/dL (3.4-5.0); Alkaline Phosphatase 167 U/L (46-116); Anion Gap 12 mmol/L (8-16); Aspartate Amino Transferase 17 U/L (15-37); Bilirubin,Total 0.3 mg/dL (0.00-1.00); Blood Urea Nitrogen 18 mg/dL (7-18); Calcium 9.4 mg/dL (8.5-10.1); Carbon Dioxide 25 mmol/L (21-32); Chloride 106 mmol/L (98-108); Cholesterol 128 mg/dL (0-200); Estimated Glomerular Filt Rate > 60; Glucose 103 mg/dL (70-99); HDL Direct 45 mg/dL (40-60); LDL Cholesterol Calculated 64 mg/dL (<130); Osmolality Calculated 297 mOsm/kg (285-295); Potassium 4.6 mmol/L (3.5-5.1); Sodium 143 mmol/L (136-145); Thyroid Stimulating Hormone 2.08 uIU/mL (0.36-3.74); Total Protein 6.7 g/dL (6.4-8.2); Triglycerides 95 mg/dL (0-150)
== END 2023-08-06 08:40 | disposition home or self-care (01) ==
LOC: CHSLAB 08:41
PROVIDERS: PCP Internal Medicine; Visit Provider Internal Medicine
DX: E78.5 Hyperlipidemia, unspecified (principal); E11.65 Type 2 diabetes mellitus with hyperglycemia; I10 Essential (primary) hypertension; Z79.01 Long term (current) use of anticoagulants
CPT/HCPCS: 36415; 80053; 80061; 83036; 84443; 85025; 85610

== ENCOUNTER 2023-08-06 13:50 | Outpatient (CLI) | payer MEDICARE, SELFPAY ==
[2023-08-07 14:08] LABS: Immature Reticulocyte Fraction 28.3 % (2.0-16.52); Reticulocyte Hemoglobin Conten 26.8 pg (28.0-35.0); Reticulocyte Percent 2.79 % (0.50-1.50); Reticulocytes Absolute 0.11 M/mm3 (0.02-0.1)
[2023-08-07 14:45] LABS: Ferritin 9 ng/mL (8-252); Iron 33 ug/dL (50-170); Percent Iron Saturation 8 % (12-57)
[2023-08-10 11:48] LABS: Methylmalonic Acid 148 nmol/L (87-318)
[2023-08-11 21:14] LABS: Red Blood Cell Folate 862 ng/mL RBC (>280)
== END 2023-08-06 13:51 | disposition home or self-care (01) ==
LOC: CHSLAB 08-18 07:38
PROVIDERS: PCP Internal Medicine; Visit Provider Internal Medicine
DX: D64.9 Anemia, unspecified (principal)
CPT/HCPCS: 36415; 82728; 82747; 83540; 83550; 83921; 85046

== ENCOUNTER 2023-09-22 09:08 | Outpatient (CLI) | payer MEDICARE, SELFPAY ==
[2023-09-22 09:20] LABS: Basophils Absolute Auto 0.06 K/mm3 (0.00-0.10); Basophils Percent Auto 0.8 % (0.0-1.0); Eosinophils Absolute Auto 0.15 K/mm3 (0.02-0.50); Hematocrit 37.9 % (35.0-49.0); Hemoglobin 11.5 g/dL (12.0-15.0); Immature Granulocyte Absolute 0.02 K/mm3 (0.00-0.00); Immature Granulocyte Percent A 0.3 % (0.0-0.0); Immature Reticulocyte Fraction 20.5 % (2.0-16.52); Lymphocytes Absolute Auto 2.16 K/mm3 (1.10-4.50); Lymphocytes Percent Auto 29.4 % (18.0-42.0); Mean Corpuscular HGB Conc 30.3 g/dL (32.0-36.0); Mean Corpuscular Hemoglobin 27.8 pg (27.0-31.0); Mean Corpuscular Volume 91.8 fL (78.0-102.0); Mean Platelet Volume 10.2 fl (9.2-11.8); Monocytes Absolute Auto 0.57 K/mm3 (0.10-0.90); Monocytes Percent Auto 7.8 % (2.0-11.0); Neutrophils Absolute Auto 4.4 K/mm3 (1.7-7.2); Neutrophils Percent Auto 59.7 % (50.0-70.0); Platelet Count Result 314 K/mm3 (150-420); Red Blood Count 4.13 M/mm3 (4.20-5.40); Red Cell Distribution Width 17.1 % (11.6-14.4); Reticulocyte Hemoglobin Conten 31.8 pg (28.0-35.0); Reticulocyte Percent 2.79 % (0.50-1.50); Reticulocytes Absolute 0.12 M/mm3 (0.02-0.1); White Blood Count 7.3 K/mm3 (4.8-10.8)
[2023-09-22 09:33] LABS: INR 1.7; Prothrombin Time 17.7 Seconds (9.50-12.10)
[2023-09-22 10:01] LABS: Ferritin 13 ng/mL (8-252)
== END 2023-09-22 09:09 | disposition home or self-care (01) ==
PROVIDERS: PCP Internal Medicine; Visit Provider Internal Medicine
DX: D50.9 Iron deficiency anemia, unspecified (principal); Z79.01 Long term (current) use of anticoagulants
CPT/HCPCS: 36415; 82728; 85025; 85046; 85610

== ENCOUNTER 2023-10-13 11:37 | Outpatient (RCR) | payer MEDICARE, SELFPAY ==
[2023-07-15 10:27] LABS: INR 2.4; Prothrombin Time 25.1 Seconds (9.50-12.10)
[2023-10-13 12:00] LABS: INR 2.1; Prothrombin Time 21.6 Seconds (9.50-12.10)
== END 2023-10-13 23:59 | disposition home or self-care (01) ==
LOC: CHSLAB 11:37
PROVIDERS: PCP Internal Medicine; Visit Provider Internal Medicine
DX: Z51.81 Encounter for therapeutic drug level monitoring (principal); Z79.01 Long term (current) use of anticoagulants
CPT/HCPCS: 36415; 85610

== ENCOUNTER 2023-12-30 08:26 | Outpatient (RCR) | payer MEDICARE, SELFPAY ==
[2023-11-11 11:55] LABS: INR 2.2; Prothrombin Time 22.4 Seconds (9.50-12.10)
[2023-12-15 09:33] LABS: INR 1.4; Prothrombin Time 14.7 Seconds (9.50-12.10)
[2023-12-30 09:01] LABS: INR 1.6; Prothrombin Time 16.7 Seconds (9.50-12.10)
== END 2024-02-09 23:59 | disposition home or self-care (01) ==
LOC: CHSLAB 08:26
PROVIDERS: PCP Internal Medicine; Visit Provider Internal Medicine
DX: Z51.81 Encounter for therapeutic drug level monitoring (principal); Z79.01 Long term (current) use of anticoagulants
CPT/HCPCS: 36415; 85610

== ENCOUNTER 2024-01-13 08:57 | Outpatient (CLI) | payer MEDICARE, SELFPAY ==
[2024-01-13 09:15] LABS: Basophils Absolute Auto 0.06 K/mm3 (0.00-0.10); Basophils Percent Auto 0.7 % (0.0-1.0); Eosinophils Absolute Auto 0.17 K/mm3 (0.02-0.50); Hematocrit 38.9 % (35.0-49.0); Hemoglobin 12.1 g/dL (12.0-15.0); Immature Granulocyte Absolute 0.04 K/mm3 (0.00-0.00); Immature Granulocyte Percent A 0.5 % (0.0-0.0); Lymphocytes Absolute Auto 2.72 K/mm3 (1.10-4.50); Lymphocytes Percent Auto 32.1 % (18.0-42.0); Mean Corpuscular HGB Conc 31.1 g/dL (32.0-36.0); Mean Corpuscular Volume 93.3 fL (78.0-102.0); Mean Platelet Volume 9.8 fl (9.2-11.8); Monocytes Absolute Auto 0.48 K/mm3 (0.10-0.90); Monocytes Percent Auto 5.7 % (2.0-11.0); Platelet Count Result 321 K/mm3 (150-420); Red Blood Count 4.17 M/mm3 (4.20-5.40); Red Cell Distribution Width 16.1 % (11.6-14.4); White Blood Count 8.5 K/mm3 (4.8-10.8)
[2024-01-13 09:25] LABS: Hemoglobin A1C 5.9 % (<5.7)
[2024-01-13 09:29] LABS: INR 2.6; Prothrombin Time 26.6 Seconds (9.50-12.10)
[2024-01-13 10:02] LABS: Alanine Aminotransferase 32 U/L (14-59); Albumin Level 3.6 g/dL (3.4-5.0); Alkaline Phosphatase 179 U/L (46-116); Anion Gap 8 mmol/L (8-16); Aspartate Amino Transferase 19 U/L (15-37); Bilirubin,Total 0.3 mg/dL (0.00-1.00); Blood Urea Nitrogen 16 mg/dL (7-18); Calcium 8.7 mg/dL (8.5-10.1); Carbon Dioxide 29 mmol/L (21-32); Chloride 103 mmol/L (98-108); Cholesterol 132 mg/dL (0-200); Estimated Glomerular Filt Rate > 60; Ferritin 12 ng/mL (8-252); Glucose 129 mg/dL (70-99); HDL Direct 57 mg/dL (40-60); Iron 32 ug/dL (50-170); LDL Cholesterol Calculated 57 mg/dL (<130); Osmolality Calculated 293 mOsm/kg (285-295); Percent Iron Saturation 8 % (12-57); Potassium 4.2 mmol/L (3.5-5.1); Sodium 140 mmol/L (136-145); Thyroid Stimulating Hormone 1.55 uIU/mL (0.36-3.74); Triglycerides 88 mg/dL (0-150)
== END 2024-01-13 08:58 | disposition home or self-care (01) ==
LOC: CHSLAB 09:01
PROVIDERS: PCP Internal Medicine; Visit Provider Internal Medicine
DX: D64.9 Anemia, unspecified (principal); E11.9 Type 2 diabetes mellitus without complications; I10 Essential (primary) hypertension; Z79.01 Long term (current) use of anticoagulants
CPT/HCPCS: 36415; 80053; 80061; 82728; 83036; 83540; 83550; 84443; 85025; 85610

== ENCOUNTER 2024-02-09 12:10 | Outpatient (CLI) | payer MEDICARE, SELFPAY ==
--- NOTE | ~2024-02-09 | MM_ITS ---
EXAMINATION: MM screening [facility] BI w shari HISTORY: Screening TECHNIQUE: Craniocaudal and mediolateral oblique 3-D tomosynthesis images were obtained and synthetic 2-D images were generated. CAD analysis was submitted and interpreted. COMPARISON: Comparison to multiple prior studies sequentially, with oldest reviewed study dated 02/04. BREAST PARENCHYMAL COMPOSITION: Not dense: There are scattered areas of fibroglandular density. FINDINGS: There is no evidence of suspicious mass, calcification, or architectural distortion to sugg est malignancy in either breast. There has been no suspicious interval change. IMPRESSION: 1. No mammographic evidence of malignancy. 2. Recommend routine screening mammography in one year. BI-RADS Category 1: Negative Reviewed, dictated and finalized at location A.
[2024-02-09 13:09] LABS: Prothrombin Time 20.6 Seconds (9.50-12.1)
== END 2024-02-09 12:11 | disposition home or self-care (01) ==
LOC: CHSIMG 12:11
PROVIDERS: PCP Internal Medicine; Visit Provider Internal Medicine
DX: Z12.31 Encounter for screening mammogram for malignant neoplasm of breast (principal); Z79.01 Long term (current) use of anticoagulants
CPT/HCPCS: 36415; 77063; 77067; 85610

== ENCOUNTER 2024-03-17 14:40 | Outpatient (CLI) | payer MEDICARE, SELFPAY ==
--- NOTE | ~2024-03-17 | XR_ITS ---
EXAMINATION: XR chest 2V DATE: 03/17/2024 15:06 INDICATION: Pleurodynia TECHNIQUE: frontal and lateral views of the chest were obtained. COMPARISON: None FINDINGS: The lungs are clear with no focal airspace opacities, pulmonary edema, pleural effusion or pneumothor ax. Cardiomegaly. Mild thoracic kyphosis with bridging osteophytes at multiple levels consistent with diffuse idiopathic skeletal hyperostosis (DISH). IMPRESSION: 1. No acute cardiopulmonary disease. Reviewed, dictated and finalized at location A.
== END 2024-03-17 14:41 | disposition home or self-care (01) ==
LOC: CHSIMG 14:43
PROVIDERS: PCP Internal Medicine; Visit Provider Nurse Practitioner Family
DX: R07.81 Pleurodynia (principal)
CPT/HCPCS: 71046

== ENCOUNTER 2024-03-23 16:34 | Outpatient (RCR) | payer MEDICARE, SELFPAY ==
--- NOTE | 2024-03-23 17:33 | OPREHPOC ---
Outpatient Therapy Plan of Care This is a Multidisciplinary Plan of Care that may contain components documented by all disciplines (PT, OT, and ST.) PT Problem 1 PT Problem #1 Knowledge Deficit PT Goal 1 Goal 1. independent and compliant with HEP Target Visit 4 PT Problem 2 PT Problem #2 Pain PT Goal 1 Goal 1. decrease pain at worst to 4/10 or less in the R side Target Visit 8 PT Problem 3 PT Problem #3 Impaired Strength PT Goal 1 Goal 1. improve bilateral hip flexion strength to 4/5 or better Target Visit 8 PT Problem 4 PT Problem #4 Impaired Functional Mobil PT Goal 1 Goal 1. tinetti to display moderate fall risk or less 2. patient to report no falls in the last 4 weeks 3. patient to complete 5x sit to package dye stand loader 12 seconds or less 4. patient to complete 6 minute walk test for improved safety with community ambulation distances Target Visit 8
--- NOTE | 2024-03-23 17:33 | PTOPEVAL1 ---
Assessment and note entered by JT File, PT Evaluation Information Assessment Status Evaluation Diagnosis falls, weakness, R side pain Onset 03/17/24 Subjective Information patient reports she has pain in the R side of her body. she reports it runs up the back, along the flank, and into the front of the body. she reports she only get relief of pain/symptoms with keeping her arm over her head and laying down at night. she reports her pain has been off and on for some time. she reports she fell at home about 2 months ago. she reports she was falling on her L side, but grabbed something and turned and fell on the R side instead. she reports she is finally trying to get some help about it. she reports she has increased pain and symptoms with sitting. she reports she has had 3 chest/trunk xrays that showed no fractures. she reports she has fallen 2- 3 times this year. she reports she is legally blind due to glaucoma. she reports she has had 3-4 surgeries on the R eye. she reports she live alone. Reported Pain Level Pain Score 5: Self Report Assessment PT Clinical Summary mrs. baxter is a 64 yo woman who presents to skilled PT services for evaluation and treatment of unsteady gait/falls, and R sided pain. she presents today with a high fall risk per the tinetti, poor activity endurance, and weakness of the hips. continued skilled PT is indicated to improve her objective/functional deficits and balance to decrease future fall risk and improve her quality of life/functional activity performance. Plan of Care Interventions Electrical Stimulation,Gait Training,Hot Pack/Cold Pack,Manual Therapy,Neuro Re-education,Patient/ Caregiver Educati,Therapeutic Activities, Therapeutic Exercise PT Services Indicated Yes Treatment Frequency and 2x weekly for 8 visits Duration These treatments will address the objective and functional deficits as defined above. The patient will be advanced safely and appropriately in order for the patient to progress towards his/her prior level of function. Additional exercises will be introduced and as well as a comprehensive home exercise program upon discharge, if needed, ?to ensure carryover of functional gains achieved in the clinic. This treatment plan has been reviewed and agreement upon by the patient.
--- NOTE | 2024-04-07 14:48 | PCPTNOTE ---
Patient called & cancelled scheduled appointment this date due to doctor telling her to hold on PT. -Ana Lilia Hill, PT
--- NOTE | 2024-07-26 10:49 | PCPTNOTE ---
Pt was last seen in PT on 04/05/24. She has not called or showed up for appointments since then. she is discharged. -Ana Lilia Hill, PT
== END 2024-04-05 20:00 | disposition home or self-care (01) ==
LOC: CHSPT 16:34
PROVIDERS: Visit Provider Nurse Practitioner Family
DX: R07.81 Pleurodynia (principal); W19.XXXA Unspecified fall, initial encounter
CPT/HCPCS: 97110; 97161

== ENCOUNTER 2024-05-10 09:23 | Outpatient (RCR) | payer MEDICARE, SELFPAY ==
[2024-03-08 10:58] LABS: INR 1.6; Prothrombin Time 16.8 Seconds (9.50-12.1)
[2024-03-29 09:49] LABS: INR 4.2; Prothrombin Time 41.6 Seconds (9.50-12.1)
[2024-04-14 09:07] LABS: Prothrombin Time 30.3 Seconds (9.50-12.1)
[2024-05-10 09:52] LABS: INR 2.9; Prothrombin Time 29.3 Seconds (9.50-12.1)
== END 2024-06-06 23:59 | disposition home or self-care (01) ==
LOC: CHSLAB 09:23
PROVIDERS: PCP Internal Medicine; Visit Provider Internal Medicine
DX: Z51.81 Encounter for therapeutic drug level monitoring (principal); Z79.01 Long term (current) use of anticoagulants
CPT/HCPCS: 36415; 85610

== ENCOUNTER 2024-07-19 09:02 | Outpatient (RCR) | payer MEDICARE, SELFPAY ==
[2024-06-21 09:32] LABS: INR 2.9; Prothrombin Time 29.2 Seconds (9.50-12.1)
[2024-07-19 11:41] LABS: INR 4.3; Prothrombin Time 42.5 Seconds (9.50-12.1)
== END 2024-09-19 23:59 | disposition home or self-care (01) ==
LOC: CHSLAB 09:02
PROVIDERS: PCP Internal Medicine; Visit Provider Internal Medicine
DX: Z51.81 Encounter for therapeutic drug level monitoring (principal); Z79.01 Long term (current) use of anticoagulants
CPT/HCPCS: 36415; 85610

== ENCOUNTER 2024-08-01 12:05 | Outpatient (CLI) | payer MEDICARE, SELFPAY ==
--- NOTE | ~2024-08-01 | US_ITS ---
EXAMINATION: US arterial ankle brachial ind DATE: 08/01/2024 13:18 INDICATION: Bilateral lower limb pain TECHNIQUE: Segmental pressures and plethysmographic and Doppler waveforms of the brachial and lower e xtremity arteries were obtained. COMPARISON: None. FINDINGS: Right and left brachial artery pressures of 133 mm Hg and 150 mm Hg, respectively, are concordant (no rmal difference <= 30 mmHg). The right ankle-brachial index (MUNDO) is 1.39 (normal >= 0.9-1.0). The right great toe-brachial index (TBI) is 0.94 (normal >= 0.65). Arterial Doppler waveforms triphasic with brisk systolic upstrokes at both right posterior tibial and dorsalis pedis arteries. The left MUNDO is 1.11. The left TBI is 0.86. Arterial Doppler waveforms triphasic with brisk systolic upstrokes at both left posterior tibial and dorsalis pedis arteries. IMPRESSION: 1. No significant arterial occlusive disease with normal bilateral ABIs and TBIs Reviewed, dictated and finalized at location A. IMPRESSION: 1. No significant arterial occlusive disease with normal bilateral ABIs and TBI s
[2024-08-01 12:49] LABS: INR 2.6; Prothrombin Time 26.4 Seconds (9.50-12.1)
== END 2024-08-01 12:06 | disposition home or self-care (01) ==
PROVIDERS: PCP Internal Medicine
DX: M79.604 Pain in right leg (principal); M79.605 Pain in left leg; I73.9 Peripheral vascular disease, unspecified; Z79.01 Long term (current) use of anticoagulants
CPT/HCPCS: 36415; 85610; 93922

== ENCOUNTER 2024-08-16 09:07 | Outpatient (CLI) | payer MEDICARE, SELFPAY ==
[2024-08-16 09:51] LABS: Basophils Absolute Auto 0.07 K/mm3 (0.00-0.10); Basophils Percent Auto 0.9 % (0.0-1.0); Eosinophils Absolute Auto 0.14 K/mm3 (0.02-0.50); Eosinophils Percent Auto 1.8 % (1.0-6.0); Hematocrit 38.8 % (35.0-49.0); Hemoglobin 12.4 g/dL (12.0-15.0); Immature Granulocyte Absolute 0.04 K/mm3 (0.00-0.00); Immature Granulocyte Percent A 0.5 % (0.0-0.0); Lymphocytes Absolute Auto 2.41 K/mm3 (1.10-4.50); Lymphocytes Percent Auto 31.8 % (18.0-42.0); Mean Corpuscular Hemoglobin 30.2 pg (27.0-31.0); Mean Corpuscular Volume 94.4 fL (78.0-102.0); Mean Platelet Volume 9.7 fl (9.2-11.8); Monocytes Absolute Auto 0.58 K/mm3 (0.10-0.90); Monocytes Percent Auto 7.7 % (2.0-11.0); Neutrophils Absolute Auto 4.34 K/mm3 (1.70-7.20); Neutrophils Percent Auto 57.3 % (50.0-70.0); Platelet Count Result 295 K/mm3 (150-420); Red Blood Count 4.11 M/mm3 (4.20-5.40); Red Cell Distribution Width 14.6 % (11.6-14.4); White Blood Count 7.6 K/mm3 (4.8-10.8)
[2024-08-16 09:58] LABS: Add Urine Microscopic? NO; Appearance Urine Clear (Clear); Bilirubin Urine Negative (Negative); Blood Urine Negative (Negative); Color Urine Light Yellow (Yellow); Glucose Urine UA Negative (Negative); Ketones Urine Negative (Negative); Leukocyte Esterase Ur Negative (Negative); Nitrate Urine Negative (Negative); Protein Urine Negative (Negative); Specific Grav Ur 1.025 (1.010-1.020); Urobilinogen Urine 0.2 mg/dL (0.2-1.0); pH Urine 5.5 (5.0-8.0)
[2024-08-16 10:04] LABS: INR 1.8; Prothrombin Time 19.3 Seconds (9.50-12.1)
[2024-08-16 10:11] LABS: Hemoglobin A1C 5.8 % (<5.7)
[2024-08-16 10:42] LABS: Alanine Aminotransferase 44 U/L (14-59); Albumin Level 3.4 g/dL (3.4-5.0); Alkaline Phosphatase 156 U/L (46-116); Anion Gap 7 mmol/L (4-12); Aspartate Amino Transferase 23 U/L (15-37); Bilirubin,Total 0.3 mg/dL (0.00-1.00); Blood Urea Nitrogen 25 mg/dL (7-18); Calcium 9.7 mg/dL (8.5-10.1); Carbon Dioxide 29 mmol/L (21-32); Chloride 104 mmol/L (98-108); Cholesterol 155 mg/dL (0-200); Estimated Glomerular Filt Rate > 60; Glucose 119 mg/dL (70-99); HDL Direct 53 mg/dL (40-60); LDL Cholesterol Calculated 81 mg/dL (<130); Osmolality Calculated 295 mOsm/kg (285-295); Potassium 4.8 mmol/L (3.5-5.1); Sodium 140 mmol/L (136-145); Thyroid Stimulating Hormone 1.19 uIU/mL (0.36-3.74); Total Protein 6.9 g/dL (6.4-8.2); Triglycerides 104 mg/dL (0-150)
[2024-08-16 10:48] LABS: Creatinine Urine 55.42 mg/dL (40-278); MALB Creatinine Ratio 23.4 mg/g (0-30); Microalbumin Urine Random < 13.0 mg/L
== END 2024-08-16 09:08 | disposition home or self-care (01) ==
LOC: CHSLAB 09:08
PROVIDERS: PCP Internal Medicine; Visit Provider Internal Medicine
DX: I10 Essential (primary) hypertension (principal); E11.9 Type 2 diabetes mellitus without complications; D68.318 Other hemorrhagic disorder due to intrinsic circulating anticoagulants, antibodies, or inhibitors
CPT/HCPCS: 36415; 80053; 80061; 81003; 82043; 83036; 84443; 85025; 85610

== ENCOUNTER 2024-08-31 15:52 | Outpatient (CLI) | payer MEDICARE, SELFPAY ==
--- NOTE | ~2024-08-31 | XR_ITS ---
XR wrist RT min 3V Ordering provider: Manolo Gardiner MD History: . R wrist pain . Comparison: None. FINDINGS: BONES: No acute fracture or dislocation. No definite scaphoid fracture. JOINT SPACES: Normal. SOFT TISSUES: Normal. IMPRESSION: No acute osseous abnormality right wrist. Reviewed, dictated and finalized at location A.
--- NOTE | ~2024-08-31 | XR_ITS ---
XR hand RT min 3V Ordering provider: Manolo Gardiner MD History: . R wrist pain . Comparison: None. FINDINGS: BONES: No acute fracture or dislocation. JOINT SPACES: Narrowing of the proximal and distal interphalangeal joints. SOFT TISSUES: Normal. IMPRESSION: No acute osseous abnormality right hand. Reviewed, dictated and finalized at location A.
== END 2024-08-31 15:53 | disposition home or self-care (01) ==
LOC: CHSIMG 15:54
PROVIDERS: PCP Internal Medicine; Visit Provider Internal Medicine
DX: M25.531 Pain in right wrist (principal)
CPT/HCPCS: 73110; 73130

== ENCOUNTER 2024-09-01 09:57 | Outpatient (CLI) | payer MEDICARE, SELFPAY ==
--- NOTE | ~2024-09-01 | CT_ITS ---
CT brain wo con Ordering provider: Susanne Basilio, [employer] History: 64 years Female with . Head injury-POSTEROIR X1DAY AGO,ON BLOOD THINNERS . Comparison: None. Technique: CT of the head without contrast. Radiation reduction technique utilized.The dose-length product was 681 mGy-cm. FINDINGS: BRAIN PARENCHYMA AND CSF SPACES: Hyperdensity measuring 1 cm in the area adjacent to the right tentor ium suggestive of subdural hematoma. Mild leukoaraiosis and diffuse cortical atrophy. Mild atheromato us disease. No midline shift, or mass effect. The brain parenchyma and CSF spaces are otherwise christin l. VISUALIZED PARANASAL SINUSES: Well aerated. MASTOIDS: Well aerated. BONES: The bones appear intact. SOFT TISSUES: Hyperdensty which may be calcification or hemorrhage in the left eye and to a lesser ex tent the right. Clinical correlation advised. Visualized nasopharynx is normal. Superficial soft tiss ues are normal. IMPRESSION: Hyperdensity adjacent to the right tentorium measuring about 1 cm most likely subdural hematoma. Calc ified meningioma is less likely. Hyperdensities in both eye globes more prominent on the left most likely calcification. Physician: Susanne Basilio, [employer] Was notified with the result of the patient at 10:47 AM on September 01, 2024. Reviewed, dictated and finalized at location A. IMPRESSION: Hyperdensity adjacent to the right tentorium measuring about 1 cm most likely s ubdural hematoma. Calcified meningioma is less likely. Hyperdensities in both eye globes more prominent on the left most likely calcif ication. Physician: Susanne Basilio, [employer] Was notified with the result of the patient at 10:47 AM on September 01, 2024.
== END 2024-09-01 09:58 | disposition home or self-care (01) ==
PROVIDERS: PCP Internal Medicine; Visit Provider Nurse Practitioner Family
DX: S09.90XA Unspecified injury of head, initial encounter (principal); Z79.01 Long term (current) use of anticoagulants
CPT/HCPCS: 70450

== ENCOUNTER 2024-09-01 11:00 | Emergency (ER) | payer MEDICARE, SELFPAY ==
[2024-09-01] VITALS (22 sets, daily range): BP systolic 121–171; BP diastolic 55–66; PULSE 63–83; RESP 14–20; TEMP 36.8–37.1; O2SAT 93–100
--- NOTE | 2024-09-01 11:22 | ECG_ITS ---
Test Date: 2024-09-01 11:34:26 Measurements Intervals [place] Rate: 61 P: 0 VT: 0 QRS: 60 QRSD: 101 T: 11 QT: 387 QTc: 393 Interpretive Statements ATRIAL FIBRILLATION LOW QRS VOLTAGE IN PRECORDIAL LEADS [QRS DEFLECTION < 1.0 mV IN CHEST LEADS] POSSIBLE ANTERIOR MYOCARDIAL INFARCTION , PROBABLY OLD [30 ms Q WAVE IN V3/V4, OR R < 0.2 mV IN V4] No previous ECG available for comparison Electronically Signed On 09-01-2024 15:24:20 CDT by Kings Soni M.D.
[2024-09-01 11:28] LABS: Basophils Absolute Auto 0.06 K/mm3 (0.00-0.10); Basophils Percent Auto 0.7 % (0.0-1.0); Eosinophils Absolute Auto 0.07 K/mm3 (0.02-0.50); Eosinophils Percent Auto 0.8 % (1.0-6.0); Hematocrit 38.4 % (35.0-49.0); Hemoglobin 12.3 g/dL (12.0-15.0); Immature Granulocyte Absolute 0.03 K/mm3 (0.00-0.00); Immature Granulocyte Percent A 0.3 % (0.0-0.0); Lymphocytes Absolute Auto 2.47 K/mm3 (1.10-4.50); Lymphocytes Percent Auto 28.2 % (18.0-42.0); Mean Corpuscular Hemoglobin 30.3 pg (27.0-31.0); Mean Corpuscular Volume 94.6 fL (78.0-102.0); Mean Platelet Volume 9.5 fl (9.2-11.8); Monocytes Absolute Auto 0.73 K/mm3 (0.10-0.90); Monocytes Percent Auto 8.3 % (2.0-11.0); Neutrophils Absolute Auto 5.39 K/mm3 (1.70-7.20); Neutrophils Percent Auto 61.7 % (50.0-70.0); Platelet Count Result 321 K/mm3 (150-420); Red Blood Count 4.06 M/mm3 (4.20-5.40); Red Cell Distribution Width 14.6 % (11.6-14.4); White Blood Count 8.8 K/mm3 (4.8-10.8)
--- NOTE | 2024-09-01 11:30 | PC.NURSE ---
Called Dr. Gardiner's office per RN to retrieve updated med list
[2024-09-01 11:44] LABS: Alanine Aminotransferase 27 U/L (14-59); Albumin Level 3.3 g/dL (3.4-5.0); Alkaline Phosphatase 150 U/L (46-116); Anion Gap 9 mmol/L (4-12); Aspartate Amino Transferase 20 U/L (15-37); Bilirubin,Total 0.4 mg/dL (0.00-1.00); Blood Urea Nitrogen 19 mg/dL (7-18); Calcium 9.5 mg/dL (8.5-10.1); Carbon Dioxide 27 mmol/L (21-32); Chloride 105 mmol/L (98-108); Estimated Glomerular Filt Rate > 60; Glucose 110 mg/dL (70-99); Osmolality Calculated 295 mOsm/kg (285-295); Potassium 4.2 mmol/L (3.5-5.1); Sodium 141 mmol/L (136-145); Total Protein 7.2 g/dL (6.4-8.2)
[2024-09-01 11:58] LABS: Estimated CRCL calculation 103 ml/min
[2024-09-01 12:03] LABS: INR 3.3; Partial Thromboplastin Time 41.9 Sec (23.9-30.70); Prothrombin Time 32.8 Seconds (9.50-12.1)
--- NOTE | 2024-09-01 12:27 | ED.HEATRA ---
HPI - Head Injury General Chief complaint: Head Injury Stated complaint: head injury Time Seen by Provider: 09/01/24 11:03 Source: patient and family Mode of arrival: ambulatory Limitations: no limitations History of Present Illness HPI Narrative: this is a 64-year-old female with history of AFib and diabetes along with hypertension presents after she was sent by her primary care from their office with some fall that occurred yesterday had shown CT scan performed at her primary is office showed subdural hematoma, patient placed in a C-collar neurologically with no deficits glass calc coma Score of 15 pupils are equal and reactive the patient currently not complaining of headaches or blurry vision no other injuries noted except for her right wrist pain. There is currently no chest pain no shortness for breath no fever chills. MD Complaint: head injury Onset (ago): day(s) Arrival Conditions: C-spine immobilization present Mechanism of Injury: fall Place: home Loss of Consciousness: no Location of injury: occipital Severity: moderate Related Data Home Medications Medication Instructions Recorded Confirmed carvedilol 12.5 mg tablet 12.5 mg PO BID 08/20/21 08/20/21 cetirizine 10 mg tablet 10 mg PO DAILY 08/20/21 08/20/21 duloxetine 20 mg capsule,delayed 20 mg PO BID 08/20/21 08/20/21 release famotidine 20 mg tablet 20 mg PO DAILY 08/20/21 08/20/21 losartan 100 1 tablet PO DAILY 08/20/21 08/20/21 mg-hydrochlorothiazide 25 mg tablet metformin 500 mg tablet,extended 1,500 mg PO DAILY 08/20/21 08/20/21 release 24 hr semaglutide 0.25 mg or 0.5 mg (2 0.25 mg subcut WEEKLY 08/20/21 08/20/21 mg/1.5 mL) subcutaneous pen injector (Ozempic) sertraline 100 mg tablet 150 mg PO DAILY 08/20/21 08/20/21 spironolactone 25 mg tablet 25 mg PO DAILY 08/20/21 08/20/21 warfarin 3 mg tablet 3.5 mg PO DAILY 08/20/21 08/20/21 Allergies Allergy/AdvReac Type Severity Reaction Status Date / Time No Known Allergies Allergy Verified 09/01/24 11:14 Review of Systems Review of Systems: All systems reviewed & are unremarkable except as noted in HPI and below PMFSH Past Medical History Medical History Asthma Atrial fibrillation Diabetes type 2, controlled GERD (gastroesophageal reflux disease) History of ulcer disease Hypertension Iron deficiency anemia ERIKA (obstructive sleep apnea) Surgical History Surgical History History of gastric bypass Social History Social History Smoking status: Never smoker Living arrangements: alone Spiritual care concerns: No Exam Const: General: healthy appearing Nutritional Appearance: well nourished Orientation/consciousness: patient oriented x3 Limitations: no limitations Eyes: Conjunctivae: conjunctivae normal Pupils: Equal, round and reactive pupils present EOM: EOMs intact bilaterally Neck: Neck: normal visual inspection, no lymphadenopathy and no meningeal signs Chest: Chest palpation & inspection: normal inspection of the chest Resp: Effort & Inspection: normal respiratory effort Auscultation: clear to auscultation bilaterally Cardio: Rate: regular rate Rhythm: regular rhythm GI: GI Palp: Yes Soft to palpation Auscultation: normal bowel sounds Back/Spine/Pelvis: Back: no CVA tenderness Skin: General skin exam: normal color Rashes: no rashes Wounds: no wounds Neuro: General: patient oriented x3 and moves all extremities Extrem: General: normal to inspection and no clubbing, cyanosis or edema Psych: Mental Status: mental status grossly normal Course Course Emergency Course: Patient has CT scan of the brain performed which shows a 1cm subdural hematoma x-ray of the right wrist shows no acute abnormalities her vitals are stable blood work does show that she has an INR of 3.3 vitamin K 10mg giv
[2024-09-01] MEDS: PHYTONADIONE INJ 10 MG/ML AMP IM (12:31)
== END 2024-09-01 13:05 | disposition short-term general hospital (02) ==
PROVIDERS: Emergency Provider Emergency Medicine; PCP Internal Medicine
DX: S06.5XAA Traumatic subdural hemorrhage with loss of consciousness status unknown, initial encounter (principal); S63.501A Unspecified sprain of right wrist, initial encounter; I48.91 Unspecified atrial fibrillation; E11.9 Type 2 diabetes mellitus without complications; I10 Essential (primary) hypertension; W19.XXXA Unspecified fall, initial encounter
CPT/HCPCS: 36415; 80053; 85025; 85610; 85730; 93005; 96372; 99285; J3430; L0150

== ENCOUNTER 2024-10-25 08:53 | Outpatient (RCR) | payer MEDICARE, SELFPAY ==
[2024-09-27 09:31] LABS: INR 2.1; Prothrombin Time 21.8 Seconds (9.50-12.1)
[2024-10-25 10:08] LABS: INR 2.5; Prothrombin Time 25.1 Seconds (9.50-12.1)
== END 2024-12-26 23:59 | disposition home or self-care (01) ==
LOC: CHSLAB 08:53
PROVIDERS: PCP Internal Medicine; Visit Provider Internal Medicine
DX: Z51.81 Encounter for therapeutic drug level monitoring (principal); Z79.01 Long term (current) use of anticoagulants
CPT/HCPCS: 36415; 85610

== ENCOUNTER 2024-11-30 09:17 | Outpatient (CLI) | payer MEDICARE, SELFPAY ==
[2024-11-30 09:36] LABS: Basophils Absolute Auto 0.06 K/mm3 (0.00-0.10); Basophils Percent Auto 0.7 % (0.0-1.0); Eosinophils Absolute Auto 0.17 K/mm3 (0.02-0.50); Eosinophils Percent Auto 2.1 % (1.0-6.0); Hematocrit 37.7 % (35.0-49.0); Hemoglobin 11.5 g/dL (12.0-15.0); Immature Granulocyte Absolute 0.02 K/mm3 (0.00-0.00); Immature Granulocyte Percent A 0.2 % (0.0-0.0); Lymphocytes Absolute Auto 2.22 K/mm3 (1.10-4.50); Lymphocytes Percent Auto 27.5 % (18.0-42.0); Mean Corpuscular HGB Conc 30.5 g/dL (32-36); Mean Corpuscular Hemoglobin 29.3 pg (27.0-31.0); Mean Corpuscular Volume 96.2 fL (78.0-102.0); Mean Platelet Volume 9.8 fl (9.2-11.8); Monocytes Absolute Auto 0.58 K/mm3 (0.10-0.90); Monocytes Percent Auto 7.2 % (2.0-11.0); Neutrophils Absolute Auto 5.02 K/mm3 (1.70-7.20); Neutrophils Percent Auto 62.3 % (50.0-70.0); Platelet Count Result 310 K/mm3 (150-420); Red Blood Count 3.92 M/mm3 (4.20-5.40); Red Cell Distribution Width 13.6 % (11.6-14.4); White Blood Count 8.1 K/mm3 (4.8-10.8)
[2024-11-30 09:39] LABS: Add Urine Microscopic? NO; Appearance Urine Clear (Clear); Bilirubin Urine Negative (Negative); Blood Urine Negative (Negative); Color Urine Light Yellow (Yellow); Glucose Urine UA Negative (Negative); Ketones Urine Negative (Negative); Leukocyte Esterase Ur Negative (Negative); Nitrate Urine Negative (Negative); Protein Urine Negative (Negative); Specific Grav Ur 1.025 (1.010-1.020); Urobilinogen Urine 0.2 mg/dL (0.2-1.0); pH Urine 5.5 (5.0-8.0)
[2024-11-30 09:49] LABS: INR 2.3; Prothrombin Time 23.6 Seconds (9.50-12.1)
[2024-11-30 10:36] LABS: Hemoglobin A1C 6.2 % (<5.7)
[2024-11-30 10:59] LABS: Alanine Aminotransferase 30 U/L (14-59); Albumin Level 3.7 g/dL (3.4-5.0); Alkaline Phosphatase 186 U/L (46-116); Anion Gap 11 mmol/L (4-12); Aspartate Amino Transferase 17 U/L (15-37); Bilirubin,Total 0.2 mg/dL (0.00-1.00); Blood Urea Nitrogen 24 mg/dL (7-18); Calcium 9.1 mg/dL (8.5-10.1); Carbon Dioxide 27 mmol/L (21-32); Chloride 107 mmol/L (98-108); Cholesterol 128 mg/dL (0-200); Estimated Glomerular Filt Rate > 60; Glucose 107 mg/dL (70-99); HDL Direct 56 mg/dL (40-60); LDL Cholesterol Calculated 55 mg/dL (<130); Osmolality Calculated 304 mOsm/kg (285-295); Potassium 5.1 mmol/L (3.5-5.1); Sodium 145 mmol/L (136-145); Thyroid Stimulating Hormone 1.27 uIU/mL (0.36-3.74); Total Protein 6.8 g/dL (6.4-8.2); Triglycerides 83 mg/dL (0-150)
[2024-11-30 16:38] LABS: Creatinine Urine 60.27 mg/dL (40-278); MALB Creatinine Ratio 157.6 mg/g (0-30)
== END 2024-11-30 09:18 | disposition home or self-care (01) ==
PROVIDERS: PCP Internal Medicine; Visit Provider Internal Medicine
DX: I10 Essential (primary) hypertension (principal); E11.65 Type 2 diabetes mellitus with hyperglycemia; E78.5 Hyperlipidemia, unspecified; Z79.01 Long term (current) use of anticoagulants
CPT/HCPCS: 36415; 80053; 80061; 81003; 82043; 83036; 84443; 85025; 85610; 87086

== ENCOUNTER 2025-02-20 13:58 | Outpatient (CLI) | payer MEDICARE, SELFPAY ==
--- NOTE | ~2025-02-20 | MM_ITS ---
EXAMINATION: MM screening harika BI w shari HISTORY: Screening TECHNIQUE: Craniocaudal and mediolateral oblique 3-D tomosynthesis images were obtained and synthetic 2-D images were generated. CAD analysis was submitted and interpreted. COMPARISON: Comparison to multiple prior studies sequentially, with oldest reviewed study dated 07/2015. BREAST PARENCHYMAL COMPOSITION: Not dense: There are scattered areas of fibroglandular density. FINDINGS: There is no evidence of suspicious mass, calcification, or architectural distortion to sugg est malignancy in either breast. There has been no suspicious interval change. IMPRESSION: 1. No mammographic evidence of malignancy. 2. Recommend routine screening mammography in one year. BI-RADS Category 1: Negative Reviewed, dictated and finalized at location B.
--- OUTSIDE RECORDS SUMMARY | 2025-02-20 15:37 | XMS_ITS | Encounter Summary ---
Author Organization [facility] Address [facility] [place] [address] Care Team Providers Care Biomedical Instrument Technician Name Role Phone Manolo Gardiner MD Primary Care Provider [phone] Kayode Mays MD Unavailable [phone] Madelaine Thakur MD Unavailable [phone] [facility]- Unavailable [phone] Encounter Details Date Type Department Care Team (Late st Contact Info) Description 05/14/2023 Abstract [facility] [address] [place] [address] Kayode Mays MD [address] [place] [address] Social History Tobacco Use Types Packs/Day Years Used Date Smoking Tobacco: Never Smokeless Tobacco: Never Comments Unknown Sex and Gender Information Value Date Recorded Sex Assigned at Not on file Legal Sex Female 1:41 AM CDT Gender Identity Not on file Sexual Orientation Not on file COVID-19 Exposure Response Date Recorded In the last 10 days, have yo u been in contact with someone who was confirmed or suspected to have Coronavirus/COVID-19? No / Unsure 04/16/2023 9:44 AM CDT documented as of this encounter Plan of Treatment Upcoming Encounters Date Type Department Care Team (Late Contact Info) Description 04/11/2025 9:00 AM CDT Office Visit [facility] [place] [address] Walter Lux MD [address] [facility] [address] [place] [address] documented as of this encounter Procedures Procedure Name Priority Date/Time Associated Diagnosis Comments PT/INR (OUTSIDE LAB) Routine 04/07/2023 CMP (ABSTRACTED LAB) Routine 03/10/2023 LIPID PANEL Routine 03/10/2023 documented in this encounter Results * PT/INR (OUTSIDE LAB) (04/07/2023) Pathologist [facility] PROTIME WHOLE BLOOD 26.3 INR WHOLE BLOOD 2.60 04/07/2023 us Default History Genericprovider LAB-OUTSIDE/ABST RACTED Final Result * LIPID PANEL (03/10/2023) Pathologist [facility] CHOLESTEROL 116 0 - 200 HDL 53 40 - 60 TRIGLYCERIDES 75 0 - 150 LDL (CALCULATED) 48 <130 03/10/2023 us Default History Genericprovider LABORATORY Final Result * (ABNORMAL) CMP (ABSTRACTED LAB) (03/10/2023) Pathologist [facility] SODIUM S/P/B 144 136 - 145 POTASSIUM S/P/B 4.3 3.5 - 5.1 CHLORIDE S/P/B 107 98 - 108 CO2 28 21 - 32 BUN 12 7 - 18 CREATININE S/P/B 0.67 0.55 - 1.02 CALCIUM S/P/B 9.0 8.5 - 10.1 GLUCOSE 127 70 - 99 mg/dL TOTAL PROTEIN S/P/B 6.7 6.4 - 8.2 ALBUMIN S/P/B 3.4(A) 3.4 - 5.0 AST 14 15 - 37 ALT 28 14 - 59 ALKALINE PHOSPHATASE S/P/B 166 46 - 116 BILIRUBIN TOTAL S/P/B 0.4 0.00 - 1.00 03/10/2023 us Default History Genericprovider LAB-OUTSIDE/ABST RACTED Final Result documented in this encounter Visit Diagnoses Not on filedocumented in this encounter Care Teams Biomedical Instrument Technician Relationship Specialty Start Date End Date Manolo Gardiner MD [address] [place] [address] PCP - General INTERNAL MEDICINE 08/03/19 Kayode Mays MD [address] [place] [address] [place] Joint Filler CARDIOVASCULAR DISEASE 08/03/19 02/16/24 Madelaine Thakur MD [address] [place] [address] INTERVENTIONAL CARDIOLOGY 02/17/24 Zaynab Muhammad, ANP- [address] [place] [address] Nurse Practitioner NURSE PRACTITIONER ADULT HEALTH 02/17/24 documented as of this encounter
--- OUTSIDE RECORDS SUMMARY | 2025-02-20 15:37 | XMS_ITS | Encounter Summary ---
Author Organization [facility] Address [address] [place] [address] Care Team Providers Care Lean Six Sigma Black Belt Name Role Phone Manolo Gardiner MD Primary Care Provider [phone] Kayode Mays MD Unavailable [phone] Madelaine Thakur MD Unavailable [phone] Zaynab Muhammad [facility]- Unavailable + Encounter Details Date Type Department Care Team (Late Contact Info) Description 08/02/2019 Abstract [facility] [address] [place] [phone] Abstract, Doc [facility] Social History Tobacco Use Types Packs/Day Years Used Date Smoking Tobacco: Never Smokeless Tobacco: Never Comments Unknown Sex and Gender Information Value Date Recorded Sex Assigned at Not on file Legal Sex Female 1:41 AM CDT Gender Identity Not on file Sexual Orientation Not on file documented as of this encounter Plan of Treatment Upcoming Encounters Date Type Department Care Team (Late Contact Info) Description 04/11/2025 9:00 AM CDT Office Visit [facility] [place] [address] Walter Lux MD [address] [facility] [address] [place] [address] documented as of this encounter Visit Diagnoses Not on filedocumented in this encounter Care Teams Lean Six Sigma Black Belt Relationship Specialty Start Date End Date Manolo Gardiner MD [address] [place] [address] PCP - General INTERNAL MEDICINE 08/03/19 Kayode Mays MD [address] [place] [address] [place] Nut Dehydrator Operator CARDIOVASCULAR DISEASE 08/03/19 02/16/24 Madelaine Thakur MD [address] [place] [address] INTERVENTIONAL CARDIOLOGY 02/17/24 Zaynab Muhammad, [facility]- [address] [place] [address] Nurse Practitioner NURSE PRACTITIONER ADULT HEALTH 02/17/24 documented as of this encounter
--- OUTSIDE RECORDS SUMMARY | 2025-02-20 15:37 | XMS_ITS | Clinical Summary ---
Author Organization [facility] Address [address] [place] [address] Care Team Providers Care Oracle Fusion Middleware Developer Name Role Phone Manolo Gardiner MD Primary Care Provider [phone] Madelaine Thakur MD Unavailable [phone] Zaynab Muhammad [facility]- Unavailable + Allergies No known active allergies Medications famotidine 40 MG tablet Take 1 tablet (40 mg total) by mouth nightly at bedtime. Active sertraline 100 MG tablet Take 1.5 tablets (150 mg total) by mouth daily. Active spironolactone 25 MG tablet Take 1 tablet (25 mg total) by mouth daily. Active carvedilol 12.5 MG tablet Take 1 tablet (12.5 mg total) by mouth 2 (two) times daily. Active buPROPion SR 150 MG 12 hr tablet Take 1 tablet (150 mg total) by mouth 2 (two) times daily. Active fluticasone propionate 50 MCG/ACT nasal spray 2 sprays by Nasal route nightly at bedtime. Active Cholecalciferol (VITAMIN D) 2000 units Tab Take 0.5 tablets (1,000 Units total) by mouth daily. Active cetirizine 10 MG tablet Take 1 tablet (10 mg total) by mouth daily. Active montelukast 10 MG tablet Take 1 tablet (10 mg total) by mouth nightly at bedtime. Active albuterol sulfate HFA 108 (90 Base) MCG/ACT inhaler Inhale 2 puffs into the lungs every 4 (four) hours as needed for Wheezing. Active brimonidine 0.2 % ophthalmic solution Place 1 drop into both eyes 2 (two) times a day. 08/27/2020 Active warfarin 5 MG tablet As directed 08/20/2020 Active Multiple Vitamins-Minera ls (MULTIVITAMIN WOMEN 50+ OR) Take 1 tablet by mouth daily. Active glucosamine-cho ndroitin 500-400 MG Cap Take 2 capsules by mouth daily. Active magnesium oxide 400 (241.3 Mg) MG tablet Take 1 tablet (400 mg total) by mouth daily. Active dorzolamide-paulette olol 22.3-6.8 MG/ML Solution Place 1 drop into both eyes 2 (two) times a day. 03/02/2022 Active metFORMIN ER 500 MG 24 hr tablet 500 mg in the morning, 1000 mg at bedtime 02/16/2022 Active warfarin 1 MG tablet As directed 04/03/2022 Active warfarin 3 MG tablet As directed 04/03/2022 Active B Complex-C Tab tablet Take 1 tablet by mouth daily. Active ROCKLATAN 0.02-0.005 % Solution INSTILL 1 DROP INTO EACH EYE AT NIGHT 03/24/2023 Active pilocarpine (ISOPTO CARPINE) 2 % ophthalmic solution INSTILL 1 DROP INTO RIGHT EYE 3 TIMES DAILY 02/27/2023 Active DULoxetine (CYMBALTA) 60 MG capsule Take 1 capsule (60 mg total) by mouth daily. 03/23/2023 Active valsartan-hydro CHLOROthiazide (DIOVAN-HCT) 320-25 MG tablet TAKE 1 TABLET BY MOUTH EVERY DAY 90 tablet 2 08/24/2023 Active cyclobenzaprine (FLEXERIL) 5 MG tablet Take 1 tablet (5 mg total) by mouth 2 (two) times daily. 04/06/2024 Active ferrous gluconate (FERGON) 324 (38 FE) MG tablet Take 1 tablet (324 mg total) by mouth daily. 11/20/2023 Active Active Problems Problem Noted Date Diagnosed Date History of gastric bypass 05/03/2023 Obesity 06/09/2019 Overview (08/05/2019): bmi 66.8 ERIKA on CPAP GERD (gastroesophageal reflux disease) Essential hypertension Diabetes ([facility] HHS/HCC) Depression with anxiety Asthma ([facility]) Resolved Problems Problem Noted Date Diagnosed Date Resolved Date Permanent atrial fibrillatio n ([facility]) 05/03/2023 HLD (hyperlipidemia) 023 Encounters Date Type Department Care Team Description 01/30/2025 Telephone [facility] ld [address] [place] [address] Walter Lux MD Appointment Request from Last 3 Months Family History Medical History Relation Comments Depression Brother COPD Father Heart Disease Father pvd Father Relation Status Comments Brother Alive Father Alive Mother Alive Sister Social History Tobacco Use Types Packs/Day Years Used Date Smoking Tobacco: Never Smokeless Tobacco: Never Comments Unknown Sex and Gender Information Value Date Recorded Sex Assigned at Not on file Legal Sex Female 1:41 AM CDT Gender Identity Not on file Sexual Orientation Not on file Last Filed Vital Signs Vital Sign Reading Time Taken Comments Blood Pressure 120/41 04/29/2024 10:15 AM CDT Pulse 69 04/29/2024 10:15 AM CDT IR Temperature - - Respiratory Rate 18 04/29/2024 10:1 5 AM CDT Oxygen Saturation 98% 04/16/2023 10: 00 AM CDT Inhaled Oxygen Concentration - - Weight 148.4 kg (327 lb 3.2 oz) 024 10:15 AM CDT Height 167.6 cm (5' 6 ) 04/29/2024 10:1 5 AM CDT Body Mass Index 52.81 04/29/2024 10:15 AM CDT Plan of Treatment Upcoming Encounters Date Type Department Care Team ([facility] Contact Info) Description 04/11/2025 9:00 AM CDT Office Visit [facility] [place] [address] Walter Lux MD [address] [facility] [address] [place] [address] Health Maintenance Due Date Last Done Comments Cervical Cancer Screening Pa p Smear (Age 30 to 64) Every 3 Years 1961 Colorectal Cancer Screening Colonoscopy (10 Years) 1961 Kidney Health Evaluation 1961 Hemoglobin A1C 1961 Annual Physical 02/19/1964 Pneumococcal Vaccine: Pediatrics (0 to 5 Years) and At-Risk Patients (6 to 49 Years) (1 of 2 - PCV) 1967 Diabetes: Retinopathy Eye Exam 1979 Hepatitis C 1979 DTaP, Tdap and Td Vaccines ( 1 - Tdap) 02/19/1980 Cervical Cancer Screening Pa p with HPV Testing (Age 30 to 64) Every 5 Years 1991 Cervical Cancer Screening wi th HPV 1991 Mammogram Screening 2001 Zoster Vaccines (1 of 2) 2011 RSV Immunization or 60+ Years (1 - Risk 60-74 years 1-dose series) 2021 Lipid Panel 03/10/2024 03/10/2023, 01/10/2022 COVID-19 Vaccine (1 - 2023-2 5 season) 2024 Meningococcal B Vaccine Aged Out No l onger eligible based on patient's age to complete this topic Meningococcal Vaccine Aged Out No brandee lee eligible based on patient's age to complete this topic RSV Immunizations Under 20 Months Aged Out No longer eligible b ased on patient's age to complete this topic Procedures Procedure Name Priority Date/Time Associated Diagnosis Comments LIPID PANEL Routine 03/10/2023 from Last 3 Months or Most Recently Relevant to Health Maintenance Results * LIPID PANEL (03/10/2023) CHOLESTEROL 116 0 - 200 HDL 53 40 - 60 TRIGLYCERIDES 75 0 - 150 LDL (CALCULATED) 48 <130 03/10/2023 us Default History Genericprovider LABORATORY Final Result from Last 3 Months or Most Recently Relevant to Health Maintenance Insurance [employer] Care Teams Oracle Fusion Middleware Developer Relationship Specialty Start Date End Date Manolo Gardiner MD [address] [place] [phone] PCP - General INTERNAL MEDICINE 08/03/19 Madelaine Thakur MD [address] [place] [phone] INTERVENTIONAL CARDIOLOGY 02/17/24 Zaynab Muhammad, LALA- [address] [place] [address] Nurse Practitioner NURSE PRACTITIONER ADULT HEALTH 02/17/24
== END 2025-02-20 13:59 | disposition home or self-care (01) ==
LOC: CHSIMG 14:00
PROVIDERS: PCP Internal Medicine; Visit Provider Internal Medicine
DX: Z12.31 Encounter for screening mammogram for malignant neoplasm of breast (principal)
CPT/HCPCS: 77063; 77067

== ENCOUNTER 2025-02-28 09:01 | Outpatient (RCR) | payer MEDICARE, SELFPAY ==
[2025-01-03 09:43] LABS: INR 1.7; Prothrombin Time 18.2 Seconds (9.50-12.1)
[2025-01-17 09:56] LABS: INR 1.5; Prothrombin Time 15.8 Seconds (9.50-12.1)
[2025-01-25 09:36] LABS: INR 1.5; Prothrombin Time 15.9 Seconds (9.50-12.1)
[2025-02-13 09:47] LABS: INR 2.7
[2025-02-28 09:29] LABS: INR 1.7; Prothrombin Time 18.2 Seconds (9.50-12.1)
== END 2025-04-03 23:59 | disposition home or self-care (01) ==
LOC: CHSLAB 09:01
PROVIDERS: PCP Internal Medicine; Visit Provider Internal Medicine
DX: Z51.81 Encounter for therapeutic drug level monitoring (principal); Z79.01 Long term (current) use of anticoagulants
CPT/HCPCS: 36415; 85610

== ENCOUNTER 2025-03-28 09:05 | Outpatient (CLI) | payer MEDICARE, SELFPAY ==
--- OUTSIDE RECORDS SUMMARY | 2025-03-28 09:18 | XMS_ITS | Encounter Summary ---
Author Organization [facility] Address [facility] [place] [address] Care Team Providers Care Inspector Chief Name Role Phone Manolo Gardiner MD Primary Care Provider [phone] Kayode Mays MD Unavailable [phone] Madelaine Thakur MD Unavailable [phone] Zaynab Muhammad [facility]- Unavailable [phone] Encounter Details Date Type Department Care Team (Late st Contact Info) Description 05/14/2023 Abstract [facility] [address] [place] [address] Kayode Mays MD [address] [place] [address] Social History Tobacco Use Types [...] Description 04/11/2025 9:00 AM CDT Office Visit [facility]-[address] [place] [address] Walter Lux MD [address] [facility] [address] [place] [address] documented as of this encounter Procedures Procedure Name Priority Date/Time Associated Diagnosis Comments PT/INR (OUTSIDE LAB) Routine 04/07/2023 CMP (ABSTRACTED LAB) Routine 03/10/2023 LIPID PANEL Routine 03/10/2023 documented in this encounter Results * PT/INR (OUTSIDE LAB) (04/07/2023) Pathologist [facility] PROTIME WHOLE BLOOD 26.3 INR WHOLE BLOOD 2.60 04/07/2023 us Default History Genericprovider LAB-OUTSIDE/ABST RACTED Final Result * LIPID PANEL (03/10/2023) Pathologist [facility] CHOLESTEROL 116 0 - 200 HDL 53 40 - 60 TRIGLYCERIDES 75 0 - 150 LDL (CALCULATED) 48 <130 03/10/2023 us Default History Genericprovider LABORATORY Final Result * (ABNORMAL) CMP (ABSTRACTED LAB) (03/10/2023) Pathologist [facility] SODIUM S/P/B 144 136 - 145 POTASSIUM [...] on filedocumented in this encounter Care Teams Inspector Chief Relationship Specialty Start Date End Date Manolo Gardiner MD [address] [place] [address] PCP - General INTERNAL MEDICINE 08/03/19 Kayode Mays MD [address] [place] [address] [place] Automotive Finance Manager CARDIOVASCULAR DISEASE 08/03/19 02/16/24 Madelaine Thakur MD [address] [place] [address] INTERVENTIONAL CARDIOLOGY 02/17/24 Zaynab Muhammad, ANP- [address] [place] [address] Nurse Practitioner NURSE PRACTITIONER ADULT HEALTH 02/17/24 documented as of this encounter
--- OUTSIDE RECORDS SUMMARY | 2025-03-28 09:18 | XMS_ITS | Clinical Summary ---
Author Organization [facility] Address [address] [place] [address] Care Team Providers Care Tile Applicator Name Role Phone Manolo Gardiner MD Primary Care Provider [phone] Madelaine Thakur MD Unavailable [phone] Zaynab Muhammad [facility]- Unavailable + Allergies No known active allergies [...] GERD (gastroesophageal reflux disease) Essential hypertension Diabetes ([facility] HHS/HCC) Depression with anxiety Asthma ([facility]) Resolved Problems Problem Noted Date Diagnosed Date Resolved Date Permanent atrial fibrillatio n ([facility]) 05/03/2023 HLD (hyperlipidemia) 023 Encounters Date Type Department Care Team Description 01/30/2025 Telephone [facility] ld [address] [place] [address] Walter Lux MD Appointment Request [...] Upcoming Encounters Date Type Department Care Team ([facility] st Contact Info) Description 04/11/2025 9:00 AM CDT Office Visit [facility] [place] [address] Walter Lux MD [address] [facility] [address] [place] [address] Health Maintenance Due Date Last Done Comments Cervical Cancer Screening Pa p Smear (Age 30 to 64) Every 3 Years 1961 Colorectal Cancer Screening Colonoscopy (10 Years) 1961 Kidney Health Evaluation 1961 Hemoglobin A1C 1961 Annual Physical 02/19/1964 Diabetes: Retinopathy Eye Exam 1979 Hepatitis C 1979 DTaP, Tdap and Td Vaccines ( 1 - Tdap) 02/19/1980 Pneumococcal Vaccine: 50+ Years (1 of 2 - PCV) 02/19/1980 Cervical Cancer Screening Pa p with [...] Most Recently Relevant to Health Maintenance Insurance [employer] Care Teams Tile Applicator Relationship Specialty Start Date End Date Manolo Gardiner MD [address] [place] [phone] PCP - General INTERNAL MEDICINE 08/03/19 Madelaine Thakur MD [address] [place] [address] INTERVENTIONAL CARDIOLOGY 02/17/24 Zaynab Muhammad, LALA- [address] [place] [address] Nurse Practitioner NURSE PRACTITIONER ADULT HEALTH 02/17/24
--- OUTSIDE RECORDS SUMMARY | 2025-03-28 09:18 | XMS_ITS | Encounter Summary ---
Author Organization [facility] Address [address] [place] [address] Care Team Providers Care Decorating Supervisor Name Role Phone Manolo Gardiner MD Primary Care Provider [phone] Kayode Mays MD Unavailable [phone] Madelaine Thakur MD Unavailable [phone] Zaynab Muhammad [facility]- Unavailable + Encounter Details Date Type Department Care Team (Late Contact Info) Description 08/02/2019 Abstract [facility] [address] [place] [phone] Abstract, Doc [facility] Social History Tobacco Use [...] Description 04/11/2025 9:00 AM CDT Office Visit [facility] [place] [address] Walter Lux MD [address] [facility] [address] [place] [address] documented as of this encounter Visit Diagnoses Not on filedocumented in this encounter Care Teams Decorating Supervisor Relationship Specialty Start Date End Date Manolo Gardiner MD [address] [place] [address] PCP - General INTERNAL MEDICINE 08/03/19 Kayode Mays MD [address] [place] [address] [place] Creative Intern CARDIOVASCULAR DISEASE 08/03/19 02/16/24 Madelaine Thakur MD [address] [place] [address] INTERVENTIONAL CARDIOLOGY 02/17/24 Zaynab Muhammad, [facility]- [address] [place] [address] Nurse Practitioner NURSE PRACTITIONER ADULT HEALTH 02/17/24 documented as of this encounter
[2025-03-28 09:22] LABS: Hematocrit 39.6 % (35.0-49.0); Hemoglobin 12.2 g/dL (12.0-15.0); Mean Corpuscular HGB Conc 30.8 g/dL (32-36); Mean Corpuscular Hemoglobin 29.6 pg (27.0-31.0); Mean Corpuscular Volume 96.1 fL (78.0-102.0); Mean Platelet Volume 9.7 fl (9.2-11.8); Platelet Count Result 299 K/mm3 (150-420); Red Blood Count 4.12 M/mm3 (4.20-5.40); White Blood Count 7.6 K/mm3 (4.8-10.8)
[2025-03-28 09:35] LABS: Hemoglobin A1C 5.9 % (<5.7)
[2025-03-28 09:52] LABS: INR 4.5; Prothrombin Time 43.4 Seconds (9.50-12.1)
[2025-03-28 10:06] LABS: Alanine Aminotransferase 35 U/L (6-35); Alkaline Phosphatase 120 U/L (38-126); Anion Gap 6 mmol/L (4-12); Aspartate Amino Transferase 32 U/L (14-36); Bilirubin,Total 0.4 mg/dL (0.2-1.3); Blood Urea Nitrogen 21 mg/dL (7-17); Calcium 9.2 mg/dL (8.4-10.2); Carbon Dioxide 26 mmol/L (22-30); Chloride 110 mmol/L (98-107); Cholesterol 161 mg/dL (0-200); Estimated Glomerular Filt Rate > 60; Glucose 107 mg/dL (65-110); HDL Direct 51 mg/dL; LDL Cholesterol Calculated 86 mg/dL (<130); Osmolality Calculated 297 mOsm/kg (285-295); Potassium 4.7 mmol/L (3.4-5.0); Sodium 142 mmol/L (137-145); Total Protein 6.6 g/dL (6.3-8.2); Triglycerides 122 mg/dL (<150)
== END 2025-03-28 09:06 | disposition home or self-care (01) ==
LOC: CHSLAB 09:10
PROVIDERS: PCP Internal Medicine; Visit Provider Internal Medicine
DX: I10 Essential (primary) hypertension (principal); E11.65 Type 2 diabetes mellitus with hyperglycemia; E78.5 Hyperlipidemia, unspecified; Z79.01 Long term (current) use of anticoagulants
CPT/HCPCS: 36415; 80053; 80061; 83036; 84443; 85027; 85610

== ENCOUNTER 2025-04-11 09:04 | Outpatient (CLI) | payer MEDICARE, SELFPAY ==
[2025-04-11 10:05] LABS: Prothrombin Time 20.4 Seconds (9.50-12.1)
== END 2025-04-11 09:05 | disposition home or self-care (01) ==
LOC: CHSLAB 09:05
PROVIDERS: PCP Internal Medicine; Visit Provider Internal Medicine
DX: Z79.01 Long term (current) use of anticoagulants (principal)
CPT/HCPCS: 36415; 85610

== ENCOUNTER 2025-06-20 08:59 | Outpatient (CLI) | payer MEDICARE, SELFPAY ==
[2025-06-20 09:24] LABS: Hematocrit 37.5 % (35.0-49.0); Hemoglobin 11.7 g/dL (12.0-15.0); Mean Corpuscular HGB Conc 31.2 g/dL (32-36); Mean Corpuscular Hemoglobin 29.9 pg (27.0-31.0); Mean Corpuscular Volume 95.9 fL (78.0-102.0); Platelet Count Result 292 K/mm3 (150-420); Red Blood Count 3.91 M/mm3 (4.20-5.40); White Blood Count 6.3 K/mm3 (4.8-10.8)
[2025-06-20 09:37] LABS: INR 1.6; Prothrombin Time 16.6 Seconds (9.50-12.1)
[2025-06-20 09:38] LABS: Hemoglobin A1C 6.3 % (<5.7)
[2025-06-20 10:23] LABS: Alanine Aminotransferase 33 U/L (6-35); Albumin Level 4.2 g/dL (3.5-5.1); Alkaline Phosphatase 130 U/L (38-126); Anion Gap 7 mmol/L (4-12); Aspartate Amino Transferase 32 U/L (14-36); Bilirubin,Total 0.4 mg/dL (0.2-1.3); Blood Urea Nitrogen 23 mg/dL (7-17); Calcium 10.5 mg/dL (8.4-10.2); Carbon Dioxide 25 mmol/L (22-30); Chloride 106 mmol/L (98-107); Cholesterol 133 mg/dL (0-200); Estimated Glomerular Filt Rate > 60; Glucose 142 mg/dL (65-110); HDL Direct 40 mg/dL; Osmolality Calculated 291 mOsm/kg (285-295); Potassium 4.8 mmol/L (3.4-5.0); Sodium 138 mmol/L (137-145); Total Protein 6.6 g/dL (6.3-8.2); Triglycerides 146 mg/dL (<150)
[2025-06-20 10:54] LABS: Thyroid Stimulating Hormone 1.080 uIU/mL (0.465-4.680)
[2025-06-20 13:48] LABS: Calcium 10.4 mg/dL (8.4-10.2)
== END 2025-06-20 09:00 | disposition home or self-care (01) ==
PROVIDERS: PCP Internal Medicine; Visit Provider Internal Medicine
DX: E11.65 Type 2 diabetes mellitus with hyperglycemia (principal); E78.5 Hyperlipidemia, unspecified; Z79.01 Long term (current) use of anticoagulants; I10 Essential (primary) hypertension
CPT/HCPCS: 36415; 80053; 80061; 82310; 83036; 84443; 85027; 85610

== ENCOUNTER 2025-07-12 09:20 | Outpatient (CLI) | payer MEDICARE, SELFPAY ==
[2025-07-12 09:45] LABS: Hematocrit 39.5 % (35.0-49.0); Hemoglobin 12.3 g/dL (12.0-15.0)
[2025-07-12 09:59] LABS: INR 2.8; Prothrombin Time 27.9 Seconds (9.50-12.1)
[2025-07-12 10:59] LABS: Ferritin 11.00 ng/mL (11.1-264)
== END 2025-07-12 09:21 | disposition home or self-care (01) ==
LOC: CHSLAB 09:22
PROVIDERS: PCP Internal Medicine; Visit Provider Internal Medicine
DX: D64.9 Anemia, unspecified (principal); Z79.01 Long term (current) use of anticoagulants
CPT/HCPCS: 36415; 82728; 85014; 85018; 85610

== ENCOUNTER 2025-08-15 09:02 | Outpatient (CLI) | payer MEDICARE, SELFPAY ==
[2025-08-15 09:23] LABS: Hematocrit 38.2 % (35.0-49.0); Hemoglobin 11.6 g/dL (12.0-15.0)
--- OUTSIDE RECORDS SUMMARY | 2025-08-15 09:23 | XMS_ITS | Encounter Summary ---
Author Organization [facility] Address [address] [place] [address] Care Team Providers Care Academic Specialist Name Role Phone Manolo Gardiner MD Primary Care Provider [phone] Kayode Mays MD Unavailable [phone] Madelaine Thakur MD Unavailable [phone] Zaynab Muhammad [facility] Unavailable [phone] Encounter Details Date Type Department Care Team (Late st Contact Info) Description 05/14/2023 Abstract [facility] [address] [place] [address] Kayode Mays MD [address] [place] [address] Social History Tobacco Use Types Packs/Day Years Used Date Smoking Tobacco: Never Smokeless Tobacco: Never Comments Unknown Sex and Gender Information Value Date Recorded Sex Assigned at Female 05/23/2025 11:01 AM CDT Legal Sex Female 1:41 AM CDT Gender Identity Not on file Sexual Orientation Not on file COVID-19 Exposure Response Date Recorded In the last 10 days, have yo u been in contact with someone who was confirmed or suspected to have Coronavirus/COVID-19? No / Unsure 04/16/2023 9:44 AM CDT documented as of this encounter Plan of Treatment Not on file documented as of this encounter Procedures Procedure Name Priority Date/Time Associated Diagnosis Comments PT/INR (OUTSIDE LAB) Routine 04/07/2023 CMP (ABSTRACTED LAB) Routine 03/10/2023 LIPID PANEL Routine 03/10/2023 documented in this encounter Results * PT/INR (OUTSIDE LAB) (04/07/2023) PROTIME WHOLE BLOOD 26.3 INR WHOLE BLOOD 2.60 04/07/2023 us Default History Genericprovider LAB-OUTSIDE/ABST RACTED Final Result * LIPID PANEL (03/10/2023) CHOLESTEROL 116 0 - 200 HDL 53 40 - 60 TRIGLYCERIDES 75 0 - 150 LDL (CALCULATED) 48 <130 03/10/2023 us Default History Genericprovider LABORATORY Final Result * (ABNORMAL) CMP (ABSTRACTED LAB) (03/10/2023) SODIUM S/P/B 144 136 - 145 POTASSIUM [...] on filedocumented in this encounter Care Teams Academic Specialist Relationship Specialty Start Date End Date Manolo Gardiner MD [address] [place] [phone] PCP - General INTERNAL MEDICINE 08/03/19 Kayode Mays MD [address] [place] [address] [place] Manager Review CARDIOVASCULAR DISEASE 08/03/19 02/16/24 Madelaine Thakur MD [address] [place] [address] INTERVENTIONAL CARDIOLOGY 02/17/24 Zaynab Muhammad, [facility]- [address] [place] [address] Nurse Practitioner NURSE PRACTITIONER ADULT HEALTH 02/17/24 documented as of this encounter
--- OUTSIDE RECORDS SUMMARY | 2025-08-15 09:23 | XMS_ITS | Clinical Summary ---
Author Organization [facility] Address [address] [place] [address] Care Team Providers Care Solar Installer Pv Name Role Phone Manolo Gardiner MD Primary Care Provider [phone] Madelaine Thakur MD Unavailable [phone] Zaynab Muhammad [facility]- Unavailable + Allergies No known [...] Active Problems Problem Noted Date Diagnosed Date Nonrheumatic mitral valve regurgitation 05/23/20 25 History of gastric bypass 05/03/2023 Obesity 06/09/2019 Overview (08/05/2019): bmi 66.8 Permanent atrial fibrillation (CMS/[facility] HHS/[facility]) ERIKA on CPAP GERD (gastroesophageal reflux disease) Essential hypertension Diabetes ([facility] HHS/HCC) Depression with anxiety Asthma (HHS/HCC) Resolved Problems Problem Noted Date Diagnosed Date Resolved Date HLD (hyperlipidemia) 023 Encounters Date Type Department Care Team Description 06/19/2025 Results Follow-Up [facility] [place] [id number] [place] [address] Elo Harrington, RN USE ECHOCARDIOGRAM W CON 06/16/2025 8:21 AM CDT - 06/16/2025 11:59 PM CDT Hospital Encounter [facility] [address] [place] [address] Walter Lux MD Discharge Disposition: Home or Self Care (Routine Discharge) 06/16/2025 Travel 05/23/2025 11:30 AM CDT Office Visit [facility] [address] [place] [address] Walter Lux MD Coronary Artery Disease 05/23/2025 11:05 AM CDT - 05/23/2025 11:59 PM CDT Hospital Encounter [facility] [address] [place] [address] Walter Lux MD Discharge Disposition: Home or Self Care (Routine Discharge) 05/23/2025 Telephone [facility] [address] [place] [address] Walter Lux MD Schedule Test 05/23/2025 Travel 05/22/2025 Telephone [facility] [address] [place] [address] Walter Lux MD Appointment Reminder from Last 3 Months Family History Medical [...] Sign Reading Time Taken Comments Blood Pressure 135/47 05/23/2025 11:57 AM CDT Pulse 52 05/23/2025 11:57 AM CDT Temperature - - Respiratory Rate 16 05/23/2025 11:5 7 AM CDT Oxygen Saturation 98% 05/23/2025 11: 57 AM CDT Inhaled Oxygen Concentration - - Weight 154.3 kg (340 lb 3.2 oz) 025 11:57 AM CDT Height 168.9 cm (5' 6.5) 05/23/2025 11 :57 AM CDT Body Mass Index 54.09 05/23/2025 11:57 AM CDT Plan of Treatment Health Maintenance Due Date Last Done Comments [...] COVID-19 Vaccine (1 - 2023-2 5 season) 2025 Influenza Adult (#1) 2025 Meningococcal B Vaccine Aged Out No l onger eligible based on patient's age to complete this topic Meningococcal Vaccine Aged Out No brandee lee eligible based on patient's age to complete this topic RSV Immunizations Under 20 Months Aged Out No longer eligible b ased on patient's age to complete this topic Procedures Procedure Name Priority Date/Time Associated Diagnosis Comments USE ECHOCARDIOGRAM W CON Routine 06/16/2025 9:10 AM CDT Primary hypertension Nonrheumatic mitral valve regurgitation ECG 12-LEAD Routine 05/23/2025 11:15 AM CDT Essential hypertension Claudication LIPID PANEL Routine 03/10/2023 from Last 3 Months or Most Recently Relevant to Health Maintenance Results * USE ECHOCARDIOGRAM W CON (06/16/2025 9:10 AM CDT) Anatomical Region Laterality Modality NA Ultrasound 06/16/2025 8:27 AM CDT Narrative 06/19/2025 6:05 AM CDT Echocardiography Report Pat.Name: Adelita Posadas Pat.ID: [id number] .Date: 06/16/2025 Refer.MD: Katya, [facility] Exam Time: 8:27:00 AM Study Type:OUTREACH Height: 66 in Weight: 340 lb BSA: 2.51 m2 Age: 5 1960,65Y Sex: F Sonogrphr: Pat. Stat.:Outpatient Reason for Study:Primary hypertension, Nonrheumatic mitral valve regurgitation, Atrial fibrillation Procedures: Study performed at [facility], [place], [place] and interpreted by [facility]. 2D, M-mode, Doppler, Color Flow, Myocardial contrast was used to enhance endocardial definition. ++++++++++++++++++++++++++++++++++++ SUMMARY: ++++++++++++++++++++++++++++++++++++ The left ventricular systolic function is normal. The aortic valve not well visualized. There is trace mitral regurgitation. Right ventricular systolic pressure is 32 mmHg. ++++++++++++++++++++++++++++++++++++ FINDINGS: ++++++++++++++++++++++++++++++++++++ LV: The left ventricular size is normal. The left ventricular systolic function is normal. Estimated left ventricular ejection fraction is 50-55%. Left ventricular diastolic function is not accessible due to atrial fibrillation. RV: The right ventricular size is mildly enlarged. Right ventricular systolic function is normal. Right ventricular systolic pressure is 32 mmHg. TAPSE = 24mm (<16 mm indicates systolic RV dysfunction). LA: Left atrial size is normal. RA: The right atrial size is normal. JOHN: No evidence of pericardial effusion. AO: Aorta is normal. PA: Unable to reliably quantitate pulmonary systolic pressure. SVn: Inferior vena cava shows <50% collapse with respiration consistent with elevated right atrial pressure. AV: No clear spectral or echocardiographic evidence of aortic valve stenosis. The aortic valve not well visualized. MV: The mitral valve is structurally normal. There is trace mitral regurgitation. PV: Pulmonic valve not well visualized. TV: The tricuspid valve appears structurally normal. There is trace tricuspid regurgitation. <Electronic Signature> 06/19/2025 06:05 AM Walter Lux M.D. Procedure Note Walter Lux MD - 06/19/2025 Echocardiography Report Pat.Name: Adelita Posadas Pat.ID: [id number] St.Date: 06/16/2025 Refer.MD: Katya, [facility] Exam Time: 8:27:00 AM Study Type:KATYA Height: 66 in Weight: 340 lb BSA: 2.51 m2 Age: 5 1960,65Y Sex: F Sonogrphr: Pat. Stat.:Outpatient Reason for Study:Primary hypertension, Nonrheumatic mitral valve regurgitation, Atrial fibrillation Procedures: Study performed at [place], [place] and interpreted by [facility]. 2D, M-mode, Doppler, Color Flow, Myocardial contrast was used to enhance endocardial definition. ++++++++++++++++++++++++++++++++++++ SUMMARY: ++++++++++++++++++++++++++++++++++++ The left ventricular systolic function is normal. The aortic valve not well visualized. There is trace mitral regurgitation. Right ventricular systolic pressure is 32 mmHg. ++++++++++++++++++++++++++++++++++++ FINDINGS: ++++++++++++++++++++++++++++++++++++ LV: The left ventricular size is normal. The left ventricular systolic function is normal. Estimated left ventricular ejection fraction is 50-55%. Left ventricular diastolic function is not accessible due to atrial fibrillation. RV: The right ventricular size is mildly enlarged. Right ventricular systolic function is normal. Right ventricular systolic pressure is 32 mmHg. TAPSE = 24mm (<16 mm indicates systolic RV dysfunction). LA: Left atrial size is normal. RA: The right atrial size is normal. JOHN: No evidence of pericardial effusion. AO: Aorta is normal. PA: Unable to reliably quantitate pulmonary systolic pressure. SVn: Inferior vena cava shows <50% collapse with respiration consistent with elevated right atrial pressure. AV: No clear spectral or echocardiographic evidence of aortic valve stenosis. The aortic valve not well visualized. MV: The mitral valve is structurally normal. There is trace mitral regurgitation. PV: Pulmonic valve not well visualized. TV: The tricuspid valve appears structurally normal. There is trace tricuspid regurgitation. <Electronic Signature> 06/19/2025 06:05 AM Walter Lux M.D. Walter Lux MD ECHO Final Result * ECG 12 lead (HOSPITAL PERFORMED ONLY) (05/23/2025 11:15 AM CDT) 05/23/2025 11:1 5 AM CDT Narrative [facility] - 05/24/2025 9:49 AM CDT [address] [place] [address] Test Date: 2025-05-23 Pat Name: ADELITA POSADAS Department: 3 Room: Gender: Female Family Dinner Service Specialist: : 1960 Requested By: WALTER LUX Order Number: [id number] Reading MD: Walter Lux Measurements Intervals Melber Rate: 52 P: 0 OK: 0 QRS: 40 QRSD: 96 T: 14 QT: 425 QTc: 399 Interpretive Statements ATRIAL FIBRILLATION WITH SLOW VENTRICULAR RESPONSE LOW QRS VOLTAGE IN PRECORDIAL LEADS [QRS DEFLECTION < 1.0 mV IN CHEST LEADS] MINIMAL ST DEPRESSION [0.025+ mV ST DEPRESSION] ABNORMAL RHYTHM ECG Procedure Note Walter Lux MD - 05/24/2025 [place] [id number] [place] [address] Test Date: 2025-05-23 Pat Name: ADELITA CUAUHTEMOC Department: 3 Room: Gender: Female Family Dinner Service Specialist: : 1960 Requested By: WALTER LUX Order Number: [id number] Reading MD: Walter Lux Measurements Intervals Melber Rate: 52 P: 0 OK: 0 QRS: 40 QRSD: 96 T: 14 QT: 425 QTc: 399 Interpretive Statements ATRIAL FIBRILLATION WITH SLOW VENTRICULAR RESPONSE LOW QRS VOLTAGE IN PRECORDIAL LEADS [QRS DEFLECTION < 1.0 mV IN CHESTLEADS] MINIMAL ST DEPRESSION [0.025+ mV ST DEPRESSION] ABNORMAL RHYTHM ECG Walter Lux MD ECG ORDERABLES Final Result [facility] * LIPID PANEL (03/10/2023) CHOLESTEROL 116 0 - 200 HDL 53 40 - 60 TRIGLYCERIDES 75 0 - 150 LDL (CALCULATED) 48 <130 03/10/2023 us Default History Genericprovider LABORATORY Final Result from Last 3 Months or Most Recently Relevant to Health Maintenance Insurance [employer] MEDICARE Advance Directives Documents on File Type Date Recorded Patient Mosaic Tiler Expl anation Power of Fire Investigation Manager 05/24/2025 12:08 PM 01/08 - JULIETA CUAUHTEMOC, [facility]; YUDI TODD, 1ST ALTERNATE [facility]; Advance Directives and Living Will 05/23/2025 11:57 AM 01/29/2007 Healthcare Agents on File Name Relationship Healthcare Agent Relationshi p Communication Julieta Posadas ([facility]) Sister Health Care Agent Yudi Todd Other First Alternate Health Care Agent Care Teams Solar Installer Pv Relationship Specialty Start Date End Date Manolo Gardiner MD [address] [place] [phone] PCP - General INTERNAL MEDICINE 08/03/19 Madelaine Thakur MD [address] [place] [phone] INTERVENTIONAL CARDIOLOGY 02/17/24 Zaynab Muhammad, ANP- [address] [place] [address] Nurse Practitioner NURSE PRACTITIONER ADULT HEALTH 02/17/24
--- OUTSIDE RECORDS SUMMARY | 2025-08-15 09:23 | XMS_ITS | Encounter Summary ---
Author Organization [facility] Address [address] [place] [address] Care Team Providers Care Spindle Setter Name Role Phone Manolo Gardiner MD Primary Care Provider [phone] Kayode Mays MD Unavailable [phone] Madelaine Thakur MD Unavailable [phone] Zaynab Muhammad [facility] Unavailable [phone] Encounter Details Date Type Department Care Team (Late st Contact Info) Description 08/02/2019 Abstract [facility] [address] [place] [phone] Abstract, Doc [facility] Social History Tobacco Use [...] on file documented as of this encounter Visit Diagnoses Not on filedocumented in this encounter Care Teams Spindle Setter Relationship Specialty Start Date End Date Manolo Gardiner MD [address] [place] [phone] PCP - General INTERNAL MEDICINE 08/03/19 Kayode Mays MD [address] [place] [phone] Thermal Jewel Oliving Machine Operator CARDIOVASCULAR DISEASE 08/03/19 02/16/24 Madelaine Thakur MD [address] [place] [phone] INTERVENTIONAL CARDIOLOGY 02/17/24 Zaynab Muhammad, [facility] [address] [place] [id number] Nurse Practitioner NURSE PRACTITIONER ADULT HEALTH 02/17/24 documented as of this encounter
[2025-08-15 09:35] LABS: INR 3.6; Prothrombin Time 35.3 Seconds (9.50-12.1)
== END 2025-08-15 09:03 | disposition home or self-care (01) ==
LOC: CHSLAB 09:04
PROVIDERS: PCP Internal Medicine; Visit Provider Internal Medicine
DX: Z79.01 Long term (current) use of anticoagulants (principal)
CPT/HCPCS: 36415; 85014; 85018; 85610

== ENCOUNTER 2025-08-29 09:00 | Outpatient (CLI) | payer MEDICARE, SELFPAY ==
[2025-08-29 09:21] LABS: Hematocrit 39.0 % (35.0-49.0); Hemoglobin 12.4 g/dL (12.0-15.0)
[2025-08-29 09:44] LABS: INR 2.6; Prothrombin Time 26.0 Seconds (9.50-12.1)
[2025-08-29 10:10] LABS: Ferritin 9.41 ng/mL (11.1-264)
== END 2025-08-29 09:01 | disposition home or self-care (01) ==
LOC: CHSLAB 09:04
PROVIDERS: PCP Internal Medicine; Visit Provider Internal Medicine
DX: Z79.01 Long term (current) use of anticoagulants (principal); D64.9 Anemia, unspecified
CPT/HCPCS: 36415; 82728; 85014; 85018; 85610

== ENCOUNTER 2025-10-06 10:19 | Outpatient (CLI) | payer MEDICARE, SELFPAY ==
--- OUTSIDE RECORDS SUMMARY | 2025-10-06 10:22 | XMS_ITS | Clinical Summary ---
Author Organization [facility] Address [address] [place] [address] Care Team Providers Care Telephonic Nurse Name Role Phone Manolo Gardiner MD Primary Care Provider [phone] Madelaine Thakur MD Unavailable Zaynab Muhammad [facility]- Unavailable + Allergies No known active allergies [...] Overview (08/05/2019): bmi 66.8 Permanent atrial fibrillation ERIKA on CPAP GERD (gastroesophageal reflux disease) Essential hypertension Diabetes Depression with anxiety Asthma Resolved Problems Problem Noted Date Diagnosed Date Resolved Date HLD (hyperlipidemia) 023 Family History Medical History Relation Comments Depression [...] 03/10/2024 03/10/2023, 01/10/2022 COVID-19 Vaccine (1 - 2024-2 6 season) 2025 Influenza Adult (#1) 2025 Hepatitis A Vaccines Aged Out No long er eligible based on patient's age to complete this topic Meningococcal B Vaccine Aged Out No l [...] Most Recently Relevant to Health Maintenance Insurance [facility] Advance Directives Documents on File Type Date Recorded Patient Pattern Hand Expl anation Power of Shipping Agent 05/24/2025 12:08 PM 01/08 - JULIETA CUAUHTEMOC, [facility]; YUDI TODD, 1ST ALTERNATE [facility]; Advance Directives and Living Will 05/23/2025 11:57 AM 01/29/2007 Healthcare Agents on File Name Relationship Healthcare Agent Relationshi p Communication Julieta Mcraejaycob ([facility]) Sister Health Care Agent Yudi Todd Other First Alternate Health Care Agent Care Teams Telephonic Nurse Relationship Specialty Start Date End Date Manolo Gardiner MD [address] [place] [address] PCP - General INTERNAL MEDICINE 08/03/19 Madelaine Thakur MD [address] [place] [phone] INTERVENTIONAL CARDIOLOGY 02/17/24 Zaynab Muhammad, ANP- [address] [place] [address] Nurse Practitioner NURSE PRACTITIONER ADULT HEALTH 02/17/24
--- OUTSIDE RECORDS SUMMARY | 2025-10-06 10:22 | XMS_ITS | Encounter Summary ---
Author Organization [facility] Address [address] [place] [address] Care Team Providers Care Sales Assistant Institutional Sales Name Role Phone Manolo Gardiner MD Primary Care Provider [phone] Kayode Mays MD Unavailable [phone] Madelaine Thakur MD Unavailable [phone] Zaynab Muhammad [facility] Unavailable [phone] Encounter Details Date Type Department Care Team (Late st Contact Info) Description 05/14/2023 Abstract [facility] [address] [place] [phone] Kayode Mays MD [address] [place] [address] Social History Tobacco Use Types Packs/Day Years [...] on filedocumented in this encounter Care Teams Sales Assistant Institutional Sales Relationship Specialty Start Date End Date Manolo Gardiner MD [address] [place] [phone] PCP - General INTERNAL MEDICINE 08/03/19 Kayode Mays MD [address] [place] [phone] Ora Nutrition Helper CARDIOVASCULAR DISEASE 08/03/19 02/16/24 Madelaine Thakur MD [address] [place] [address] INTERVENTIONAL CARDIOLOGY 02/17/24 Zaynab Muhammad, [facility]- [address] [place] [id number] Nurse Practitioner NURSE PRACTITIONER ADULT HEALTH 02/17/24 documented as of this encounter
--- OUTSIDE RECORDS SUMMARY | 2025-10-06 10:22 | XMS_ITS | Encounter Summary ---
Author Organization [facility] Address [address] [place] [address] Care Team Providers Care Associate Professor Of Biblical Studies Name Role Phone Maonlo Gardiner MD Primary Care Provider [phone] Kayode Mays MD Unavailable [phone] Madelaine Thakur MD Unavailable [phone] Zaynab Muhammad [facility] Unavailable [phone] Encounter Details Date Type Department Care Team (Late st Contact Info) Description 08/02/2019 Abstract [facility] [address] [place] [phone] Abstract, Doc [facility] Social History Tobacco [...] on filedocumented in this encounter Care Teams Associate Professor Of Biblical Studies Relationship Specialty Start Date End Date Manolo Gardiner MD [address] [place] [phone] PCP - General INTERNAL MEDICINE 08/03/19 Kayode Mays MD [address] [place] [phone] [facility] Clinical Manager CARDIOVASCULAR DISEASE 08/03/19 02/16/24 Madelaine Thakur MD [address] [place] [phone] INTERVENTIONAL CARDIOLOGY 02/17/24 Zaynab Muhammad, [facility] [address] [place] [address] Nurse Practitioner NURSE PRACTITIONER ADULT HEALTH 02/17/24 documented as of this encounter
[2025-10-06 10:31] LABS: Hematocrit 40.7 % (35.0-49.0); Hemoglobin 12.8 g/dL (12.0-15.0); Mean Corpuscular HGB Conc 31.4 g/dL (32-36); Mean Corpuscular Hemoglobin 30.9 pg (27.0-31.0); Mean Corpuscular Volume 98.3 fL (78.0-102.0); Platelet Count Result 330 K/mm3 (150-420); Red Blood Count 4.14 M/mm3 (4.20-5.40); White Blood Count 7.2 K/mm3 (4.8-10.8)
[2025-10-06 10:44] LABS: INR 2.1; Prothrombin Time 21.9 Seconds (9.50-12.1)
[2025-10-06 10:45] LABS: Hemoglobin A1C 6.1 % (<5.7)
[2025-10-06 10:58] LABS: Alanine Aminotransferase 34 U/L (6-35); Albumin Level 4.4 g/dL (3.5-5.1); Alkaline Phosphatase 138 U/L (38-126); Anion Gap 12 mmol/L (4-12); Aspartate Amino Transferase 35 U/L (14-36); Bilirubin,Total 0.3 mg/dL (0.2-1.3); Blood Urea Nitrogen 21 mg/dL (7-17); Calcium 10.1 mg/dL (8.4-10.2); Carbon Dioxide 27 mmol/L (22-30); Chloride 103 mmol/L (98-107); Cholesterol 158 mg/dL (0-200); Estimated Glomerular Filt Rate > 60; Glucose 143 mg/dL (65-110); HDL Direct 58 mg/dL; Osmolality Calculated 299 mOsm/kg (285-295); Potassium 4.7 mmol/L (3.4-5.0); Sodium 142 mmol/L (137-145); Total Protein 7.1 g/dL (6.3-8.2); Triglycerides 125 mg/dL (<150)
[2025-10-06 11:33] LABS: Ferritin 12.10 ng/mL (11.1-264)
== END 2025-10-06 10:20 | disposition home or self-care (01) ==
LOC: CHSLAB 10:21
PROVIDERS: PCP Internal Medicine; Visit Provider Internal Medicine
DX: E11.9 Type 2 diabetes mellitus without complications (principal); I10 Essential (primary) hypertension; I48.91 Unspecified atrial fibrillation; Z79.01 Long term (current) use of anticoagulants; E61.1 Iron deficiency
CPT/HCPCS: 36415; 80053; 80061; 82728; 83036; 85027; 85610